=== PATIENT | female | born 1940 | race Caucasian/White ===

== ENCOUNTER → 2017-05-04 | Outpatient (CLI) | payer OTHER ==
[~2017-05-04] MED LIST: ASPEC81 PO; EZET10TA63 PO; FRS/40 PO; INSDGI SC; LISI10TA PO; MULT-506 PO; NSNN50; POTA-335 PO
== END | disposition home or self-care (01) ==
LOC: C.PAPS 14:05
PROVIDERS: ATTEND Obstetrics & Gynecology
DX: Z12.72 Encounter for screening for malignant neoplasm of vagina (principal); Z90.710 Acquired absence of both cervix and uterus; Z85.42 Personal history of malignant neoplasm of other parts of uterus

== ENCOUNTER 2018-09-05 13:04 | Inpatient (IN) ==
[2018-09-05 14:42] LABS: Basophils # (auto) 0.02 K/uL (0-0.2); Basophils % (auto) 0.3 %; Eosinophils % (auto) 1.5 %; Hematocrit (blood only) 42.2 % (37-47); Hemoglobin 13.1 g/dL (12.0-16.0); Immature Granulocytes # (auto) 0.01 K/uL (0.00-0.02); Immature Granulocytes % (auto) 0.1 %; Lymphocytes # (auto) 0.81 K/uL (1.2-3.4); Lymphocytes % (auto) 11.8 %; Mean Corpuscular Volume 85.8 fL (80-100); Mean Platelet Volume 11.7 fL (7.4-10.4); Monocytes # (auto) 0.59 K/uL (0.11-0.59); Monocytes % (auto) 8.6 %; Neutrophils # (auto) 5.35 K/uL (1.4-6.5); Neutrophils % (auto) 77.7 %; Platelet Count 122 K/uL (130-400); RDW Coefficient of Variation 15.4 % (11.5-14.5); RDW Standard Deviation 48.7 fL (36.4-46.3); Red Blood Count 4.92 M/uL (4.2-5.4); White Blood Count 6.88 K/uL (4.8-10.8)
--- NOTE | 2018-09-05 14:53 | XRay Report ---
SINGLE VIEW CHEST CLINICAL HISTORY: Dyspnea. FINDINGS: An AP, portable, upright chest radiograph is compared to study dated 04/21/2010. The examin ation is degraded by portable technique and patient rotation. The patient is status post midline melanie rnotomy. The heart is enlarged and there is atherosclerotic calcification of the thoracic ureter. The re is pulmonary vascular congestion with interstitial edema. Small pleural effusions are noted. There is bibasilar atelectasis. No pneumothorax is seen. The skeletal structures are osteopenic. There are healed right-sided rib fractures. Arthritic change is noted in the shoulders and spine. IMPRESSION: 1. Cardiomegaly with evidence of congestive failure and interstitial edema. 2. Small pleural effusions. Electronically signed by: Sunday Mueller M.D. 09/05/2018 2:51 PM
[2018-09-05 15:10] LABS: Albumin Level 4.1 gm/dl (3.4-5.0); BUN Creatinine Ratio 15.9 (10-20); Calcium 9.1 mg/dl (8.5-10.1); Creatinine Clr Calc Pharmacy 34.1 ml/min; Est GFR (Non-African American) 35.3; Potassium 3.7 mmol/L (3.5-5.1)
[2018-09-05 15:18] LABS: Albumin Globulin Ratio 1.2 (0.9-2); Bilirubin,Total 1.7 mg/dl (0.2-1); Globulin 3.4 gm/dl (2.5-4.0); Total Protein 7.5 gm/dl (6.4-8.2); Troponin I 0.074 ng/ml (0-0.045)
--- NOTE | 2018-09-05 16:25 | Ultrasound Report ---
US venous doppler LE BI HISTORY: Pain. Edema. le edema COMPARISON STUDY: None. FINDINGS: There is normal compressibility, flow, and augmentation within the bilateral lower extremit y deep venous systems. IMPRESSION: No DVT within the right or left lower extremity. The above report was generated using voice recognition software. It may contain grammatical, syntax or spelling errors. Electronically signed by: Joe Romero M.D. 09/05/2018 4:24 PM
--- OUTSIDE RECORDS SUMMARY | 2018-09-05 16:47 | External Medical Summary | Continuity of Care Document ---
:1940 Author Name Jason Benito, Provider Address Unavailable Unavailable , Care Team Providers Name Role Phone Lalo Benito, Garland Henao Unavailable [email or web address]. [facility] REY, Jose Unavailable Unavailable Unavailable Unavailable Unavailable Problems S/P aortic valve replacement with bioprosthetic valve (V42.2 ) (Z95.3) S/P mitral valve replacement with bioprosthetic valve (V42.2 ) (Z95.3) Well female exam with routine gynecological exam (V72.31) (Z 01.419) Chronic renal insufficiency (585.9) (N18.9) Critical Illness Myopathy (359.81) Morbid obesity (278.01) (E66.01) Osteoporosis (733.00) (M81.0) Hyperlipidemia (272.4) (E78.5) Hypertension (401.9) (I10) Paroxysmal atrial fibrillation (427.31) (I48.0) Type 2 diabetes mellitus (250.00) (E11.9) Renal failure (586) (N19) Allergies and Adverse Reactions No Known Drug Allergies (Allergy) Medications NitroTab 0.4 MG SUBL; DISSOLVE 1 TABLET UNDER THE TONGUE NEEDED FOR CHEST PAIN. Refills: 0 Aspirin 81 MG TABS; TAKE 1 TABLET DAILY. Refills: 0 Lasix 40 MG Oral Tablet; TAKE 1 TABLET DAILY. Refills: 0 Calcium 600+D3 TABS; take 1 tab daily Refills: 0 Alendronate Sodium 70 MG Oral Tablet; TAKE 1 TABLET ONCE WEE KLY. Quantity: 12 Refills: 3 Claritin-D 24 Hour TB24; TAKE 1 TABLET DAILY NEEDED. Refills: 0 Protonix 40 MG Oral Tablet Delayed Release; TAKE 1 TABLET DA BRIELLE. Refills: 0 Potassium Chloride 20 MEQ TBCR; TAKE 1 TABLET DAILY. Refills: 0 Lantus 100 UNIT/ML Subcutaneous Solution; INJECT 50 UNITS I N THE EVENING Refills: 0 Multi-Vitamin Oral Tablet; TAKE 1 TABLET DAILY. Refills: 0 Calcium + D TABS Refills: 0 Lisinopril 20 MG Oral Tablet Refills: 0 Procedures History of Hysterectomy Status: Complete d Immunizations Immunizations not documented Family History Mother No pertinent family history (V49.89) (Z78.9) Status: Active Social History - Smoking Status Unknown if ever smoked Never smoker Plan of Treatment Planned Encounters Appointment; Garland May M.D. Start: 19-Dec-2018 9:45 Request Planned Observations Planned Goals not documented Results No Known Results Results not documented Encounters Appointment; Garland May M.D. 13-Dec-2017 14:15 Encounter Diagnosis: Problem not documented Appointment; Beverly Valencia M.D. 04-May-2017 10:00 Encounter Diagnosis: Problem not documented Appointment; Garland May M.D. 28-Dec-2016 14:15 Encounter Diagnosis: Problem not documented Appointment; Garland May M.D. 19-Dec-2018 9:45 Encounter Diagnosis: Problem not documented
[2018-09-05] MEDS ORDERED: FUROSEMIDE 40 MG in SYRINGE 0 ML IV ONE (16:56)
[2018-09-05] MEDS ORDERED: NITROGLYCERIN 2% OINTMENT 30GM TUBE EXT STA (16:58)
[2018-09-05] MEDS ORDERED: FUROSEMIDE 40 MG/4 ML VIAL IV ONE (17:18)
[2018-09-05 17:25] LABS: Appearance Urine Clear (Clear); Bilirubin Urine Negative (Negative); Blood Urine Negative (Negative); Color Urine Yellow; Glucose Urine UA Negative (Negative); Ketones Urine Negative (Negative); Leukocyte Esterase Urine Negative (Negative); Nitrite Urine Negative (Negative); Protein Urine Negative (Negative); Specific Gravity Urine 1.011 (1.000-1.030); Urobilinogen Urine Negative (Negative)
--- NOTE | 2018-09-05 18:32 | History & Physical Report ---
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 In ED patient was noted to have elevated BNP and 12,689, elevated troponin 0.074, BUN 22, creatinine 1.41, glucose 241. Chest x-ray consistent with congestive changes with interstitial edema and small bilateral pleural effusions. EKG revealed sinus tachycardia with ST depression and T wave inversions inferior and laterally. She was given Lasix 40 mg IV x1 along with 0.5 inch Nitropaste. Admit to PCU consult cardiology - spoke to [facility] Dr. Wesley Received Lasix 40mg x1 IN ED Will order 40mg Lasix IV in a.m., monitor response and adjust dose accordingly echocardiogram (last echo 2015 revealed normal EF, Grade 1 DD) Daily standing weights Strict I and O Heart healthy/low sodium diet trend troponin (2) Elevated troponin: likely secondary to demand ischemia given CHF and sinus tachycardia trend troponin Q6h discussed with cardiology, heparin not recommended (3) CAD (coronary artery disease): currently on ASA, Statin, LIGIA not on BB No chest pain troponin elevated, likely demand ischemia will trend troponin, ecg and diurese (4) History of aortic valve replacement with bioprosthetic valve: (5) History of mitral valve replacement with bioprosthetic valve: (6) PAF (paroxysmal atrial fibrillation): rate and rhythm controlled not on oral anticoagulation (pt didn't tolerate wafarin per cardiology notes) continue asa (7) T2DM (type 2 diabetes mellitus): Last A1C 8.5 on 07/26/18 On Lantus [address] on Lantus/Novolog per protocol on Lisinopril for renal protection (8) CKD (chronic kidney disease) stage 3, GFR 30-59 ml/min: Bun/Cr 22/1.41 baseline Cr 1.2-1.3 monitor bmp with diuretic use (9) Thrombocytopenia: Plt ct stable at 122 monitor while on SQ heparin (10) DVT prophylaxis: heparin SQ, SCDS, TEDS per Dr. May reports pt has hx of DVT/PE monitor plt level Disposition: discharge to home when able Follow up: PCP Dr. South upon discharge along with appropriate follow up with [facility] Cardiology Patient was seen and examined in collaboration with Dr. Hodgson, please see addendum Starting 09/06/18 patient will be under the care of Dr. Solis History of Present Illness Chief Complaint: Increased lower extremity swelling x 1 week. 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 Pt notes she was last evaluated by PCP Dr. Sotuh 1 month ago. At the time patient had been doing well. 2 days after appointment she noticed intermittent lower ext swelling, worse at night and resolved in a.m. Over the past week sx have worsened and edema has been increasing and more persistent. She also notes THORNTON. Daughter at bedside elicits THORNTON likely past 2 weeks, but per patient it just started today. She is unsure of any weight gain as she doesn't weigh her self on a regular basis. She denies any recent illness, f/c/s, dizziness, lightheaded, chest pain, palpitations, sob at rest, n/v/d, abdominal pain, change in bowel or urinary habits. "I wouldn't be here if it wasn't for my swelling I feel fine." In ED patient was noted to have elevated BNP and 12,689, elevated troponin 0.074, BUN 22, creatinine 1.41, glucose 241. Chest x-ray consistent with congestive changes with interstitial edema and small bilateral pleural effusions. EKG revealed sinus tachycardia with ST depression and T wave inversions inferior and laterally. She was given Lasix 40 mg IV x1 along with 0.5 inch Nitropaste. Allergies Allergy/AdvReac Type Severity Reaction Status Date / Time No Known Allergies Allergy Unknown Verified 09/05/18 14:30 Home Medications Home Medications Medication Instructions Recorded Confirmed Type alendronate 70 mg PO WK 09/05/18 09/05/18 History amlodipine 2.5 mg PO DAILY 09/05/18 09/05/18 History aspirin [Aspir-81] 81 mg PO DAILY 09/05/18 09/05/18 History atorvastatin 20 mg PO HS 09/05/18 09/05/18 History furosemide 40 mg PO DAILY 09/05/18 09/05/18 History insulin glargine [Lantus U-100 50 units SUBCUT BID 09/05/18 09/05/18 History Insulin] lisinopril 20 mg PO DAILY 09/05/18 09/05/18 History potassium chloride [Klor-Con M20] 20 meq PO DAILY 09/05/18 09/05/18 History Past Med/Surg History Medical History History of DVT (deep vein thrombosis) (Chronic) History of pulmonary embolism (Chronic) T2DM (type 2 diabetes mellitus) (Chronic) PAF (paroxysmal atrial fibrillation) (Chronic) Thrombocytopenia (Chronic) CKD (chronic kidney disease) stage 3, GFR 30-59 ml/min (Chronic) CAD (coronary artery disease) (Chronic) HLD (hyperlipidemia) (Chronic) Osteoporosis (Chronic) History of uterine cancer (Chronic) No pertinent past medical history (Resolved) Family history non-contributory Surgical History History of aortic valve replacement with bioprosthetic valve (Chronic) History of mitral valve replacement with bioprosthetic valve (Chronic) No pertinent past surgical history (Resolved) Social History Preferred Language: Chinese Communication Ability: Effective Audio Production 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 Physical Exam Physical Exam: Gen: WD/WN, Elderly, F, Morbidly obese, NAD, sitting up in bed, pleasant and laughing, conversing easily Head: Normocephalic, Atraumatic Eyes: Sclera normal, no conjunctival injection, PERRLA, EOMI ENT: Gross hearing intact, normal pharynx, mucous membranes moist Neck: supple, no adenopathy, No JVD, no bruit, Resp: Clear to auscultation b/l, no wheeze, rales, rhonchi. 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 Extremities: B/L +3 pretibial edema, +venous stasis changes, no erythema, warmth, negative homans sign Skin: warm, moist, no rash, negative turgor, cap refill < 2sec Neuro: Alert and oriented x 3, speech normal, good mood/affect, cran nerve 2-12 intact grossly : deferred Results & Data Vital Signs (Past 12 Hours) Vital Signs Temp Pulse Pulse Resp BP BP Pulse Ox 09/05/18 18:07 89 20 140/85 97 09/05/18 16:22 100 H 22 150/79 H 99 09/05/18 13:25 36.3 C L 106 H 18 99 Laboratory Results Short CBC 09/05/18 Range/Units 14:23 WBC 6.88 (4.8-10.8) K/uL Hgb 13.1 (12.0-16.0) g/dL Hct 42.2 (37-47) % Plt Count 122 L (130-400) K/uL BMP 09/05/18 14:23 Sodium 137 Potassium 3.7 Chloride 102 Carbon Dioxide 29 BUN 22 H Creatinine 1.41 H Glucose 241 H Calcium 9.1 Cardiac Enzymes 09/05/18 Range/Units 14:23 Troponin I 0.074 H* (0-0.045) ng/ml Liver Function 09/05/18 Range/Units 14:23 Total Bilirubin 1.7 H (0.2-1) mg/dl AST 24 (15-37) U/L ALT 26 (12-78) U/L Alkaline Phosphatase 123 H (45-117) U/L Albumin 4.1 (3.4-5.0) gm/dl Urine 09/05/18 Range/Units 17:12 Urine Color Yellow Urine Appearance Clear (Clear) Urine pH 6.0 (4.5-7.5) Ur Specific [place] 1.011 (1.000-1.030) Urine Protein Negative (Negative) Urine Glucose (UA) Negative (Negative) Diagnostic Findings Venous Doppler: IMPRESSION: No DVT within the right or left lower extremity. CXR: IMPRESSION: 1. Cardiomegaly with evidence of congestive failure and interstitial edema. 2. Small pleural effusions. Medications Administered Discontinued Medications Furosemide (Lasix) Confirm Administered Dose 40 mg IV .STK-MED ONE Stop: 09/05/18 17:19 Last Admin: 09/05/18 17:23 Dose: Not Given Documented by: [id number] Furosemide 40 mg/ Syringe 4 mls @ 4 mls/min IV ONE ONE Stop: 09/05/18 16:57 Last Admin: 09/05/18 17:24 Dose: 4 mls/min Documented by: [id number] Nitroglycerin (Nitro-Bid 2%) 0.5 inch EXT NOW STA Stop: 09/05/18 16:59 Last Admin: 09/05/18 17:24 Dose: 0.5 inch Documented by: [id number] ECG Rate (beats per minute): 115 Rhythm: sinus tachycardia Findings: + ST depression and + T-wave inversion Change: the following changes noted Additional Comments: Inferior lateral ST wave depressions/Twave inversions noted Code Status & VTE Plan Code Status Full Code VTE Prophylaxis Plan VTE Prophylaxis will be ordered: Yes Supervising Physician Co-Signing Physician Notes I have seen and examined the patient and have discussed the case with the provider above. I agree with the assessment and plan as stated with the following exceptions. Ms. Lao presents with acute heart failure syndrome and has responded well to 40mg of Lasix IV. She diuresed approx 900cc (declined Chow[place]ury so estimated), she has no more tachypnea or conversational dyspnea which were noted in the ER. She personally reports being able to breathe easier. She also received 0.5 inch nitro paste. She denies any chest pain, and reports THORNTON progressing to dyspnea at rest over the past two weeks. She had some dietary indiscretions with salt, which may be contributing. She also has a bump in troponin >50% in 6 hours and with TRS 5, heparin and ASA 324mg was added in the event of silent ACS. Diabetes is uncontrolled. Physical exam reveals 118/73, P 98, AF, resp 18 and non-labored, 92% on room air. She is bright and energetic. S1/2 hears without S3. No overt murmur heard. Lungs were clear to auscultation. Abdomen was protuberant but soft, nontender and nondistended. There is 3+ pitting edema in her legs bilaterally with no evidence of cellulitis. She denies any recent infections. She has a h/o aortic and mitral bioprosthetic valves. She is followed by Dr. May. Agree with Lasix in am and adjusting dose based on output and clinical response. As there is a good response to diuretics and she denies chest pain with improved work of breathing, no further nitro will be given at this time. EKG revealed sinus tachycardia in the low 100s with TWI in I, AVL, V5 and V6. Cont to trend trops and repeat EKG in am or if new symptoms result overnight. DO Gokul (1) CHF (congestive heart failure) Heart failure chronicity: unspecified Heart failure type: unspecified Qualified Code(s): I50.9 - Heart failure, unspecified
[2018-09-05] MEDS ORDERED: ONDANSETRON INJ 2 MG/ML 2 ML VIAL IV PRN (19:02)
[2018-09-05] MEDS ORDERED: NITROGLYCERIN SL 0.4 MG/TAB TAB SL PRN (19:02)
[2018-09-05] MEDS ORDERED: POLYETHYLENE (MIRALAX) 17 GM PACK PO PRN (19:02)
[2018-09-05] MEDS ORDERED: MAGNESIUM HYDROXIDE SUSP 30 ML UDC PO PRN (19:02)
[2018-09-05] MEDS ORDERED: GLUCOSE 10 TABS/TUBE PO PRN (19:02)
[2018-09-05] MEDS ORDERED: GLUCOSE 40% GEL 15 GM TUBE PO PRN (19:02)
[2018-09-05] MEDS ORDERED: GLUCAGON FOR INJ 1 MG VIAL SQ PRN (19:02)
[2018-09-05] MEDS ORDERED: ALUMINUM/MAGNESIUM SUSP 30 ML UDC PO PRN (19:02)
[2018-09-05] MEDS ORDERED: ACETAMINOPHEN 325 MG TAB PO PRN (19:02)
[2018-09-05] MEDS ORDERED: DEXTROSE 50% 50 ML SYRINGE IV PRN (19:02)
[2018-09-05] MEDS ORDERED: CARBOHYDRATES FOR HYPOGLYCEMIA PO PRN (19:02)
[2018-09-05 20:29] LABS: INR 1.2 (0.9-1.1); Partial Thromboplastin Time 27.8 Seconds (21.0-31.0); Prothrombin Time 12.4 Seconds (9.0-12.0)
[2018-09-05] MEDS ORDERED: ASPIRIN 81 MG ECTAB PO SCH (21:00)
[2018-09-05] MEDS ORDERED: ATORVASTATIN 20 MG TAB PO SCH (21:00)
[2018-09-05] MEDS ORDERED: ASPIRIN 81 MG CHEW PO STA (21:03)
[2018-09-05] MEDS: INSULIN ASPART 100 UNITS/ML 3 ML PEN SC SCH (21:07)
[2018-09-05] MEDS: Heparin IV Standard *NO* Bolus IV SCH ×2 (21:38→22:33)
[2018-09-05] MEDS: Heparin Adult STANDARD Wt-Based Dextrose 5% 25,000 units/500 mL IV SCH (21:42)
[2018-09-05] MEDS ORDERED: HEPARIN SOD 5,000 UNIT/0.5 ML VIAL SQ SCH (22:00)
[2018-09-06 04:20] LABS: Hematocrit (blood only) 39.6 % (37-47); Hemoglobin 12.9 g/dL (12.0-16.0); Mean Corpuscular Hgb Conc 32.6 g/dL (32-36); Mean Corpuscular Volume 84.4 fL (80-100); Mean Platelet Volume 11.5 fL (7.4-10.4); Platelet Count 116 K/uL (130-400); RDW Coefficient of Variation 15.4 % (11.5-14.5); RDW Standard Deviation 47.1 fL (36.4-46.3); Red Blood Count 4.69 M/uL (4.2-5.4); White Blood Count 7.28 K/uL (4.8-10.8)
[2018-09-06 04:41] LABS: Albumin Level 3.7 gm/dl (3.4-5.0); BUN Creatinine Ratio 15.1 (10-20); Bilirubin Direct 0.5 mg/dl (0-0.2); Calcium 8.9 mg/dl (8.5-10.1); Creatinine Clr Calc Pharmacy 32.4 ml/min; Est GFR (African American) 39.3; Est GFR (Non-African American) 33.9; Potassium 3.7 mmol/L (3.5-5.1)
[2018-09-06 04:47] LABS: Total Protein 7.1 gm/dl (6.4-8.2); Troponin I 15.6 ng/ml (0-0.045)
[2018-09-06 05:08] LABS: Partial Thromboplastin Ratio 2.9
[2018-09-06 05:18] LABS: Partial Thromboplastin Time 78.4 Seconds (21.0-31.0)
[2018-09-06 06:13] LABS: Estimated Average Glucose 192 mg/dl; Hemoglobin A1C 8.3 % (4.5-5.6)
[2018-09-06] MEDS ORDERED: PERFLUTREN LIPID MICROSPHERE (DEFINITY) IV ONE (07:07)
[2018-09-06] MEDS: INSULIN ASPART 100 UNITS/ML 3 ML PEN SC SCH ×4 (07:51→20:30)
[2018-09-06] MEDS ORDERED: FUROSEMIDE 40 MG in SYRINGE 0 ML IV SCH ×2 (09:00→20:00)
[2018-09-06] MEDS ORDERED: LISINOPRIL 20 MG TAB PO SCH (09:00)
[2018-09-06] MEDS ORDERED: POTASSIUM CHLORIDE 20 MEQ TABCR PO SCH (09:00)
[2018-09-06] MEDS ORDERED: ASPIRIN 81 MG ECTAB PO SCH (09:00)
[2018-09-06] MEDS ORDERED: AMLODIPINE BESYLATE 5 MG TAB PO SCH (09:00)
[2018-09-06] MEDS ORDERED: INSULIN GLARGINE SOLOSTAR 100 UNITS/ML 3 ML PEN SC SCH (09:00)
--- NOTE | 2018-09-06 10:09 | Cardiology Consultation ---
Date of Consultation September 06, 2018 Assessment & Plan (1) NSTEMI (non-ST elevated myocardial infarction): 2. Acute CHF 3. 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 Cardiomyopathy 5. Type 2 DM 6. Dyslipidemia 7. History of paroxysmal afib 8. CKD Patient was admitted with progressive dyspnea, orthopnea and lower extremity edema. She has been chest pain free but troponin has trended up to 15 and echo demonstrates new LV dysfunction and wall motion abnormalities concerning for ischemic heart disease. Recommend cardiac catheterization for further evaluation. The procedure, risks, benefits and alternative were discussed with the patient and she wishes to proceed. Will be performed by Dr. Gresham later today. Continue aspirin. Stop amlodipine. Start metoprolol. Recommend high intensity statin. She is being diuresed with IV Lasix with improvement in her symptoms. She still has evidence of vascular congestion on exam. Continue IV Lasix. Monitor renal function and electrolytes closely. Strict I&OS. Daily weights. Low sodium diet. Supervising Physician Co-Signing Physician Notes Patient seen and examined. Agree with assessment and plan as outlined by physician construction management assistant Tierra Hinkle. Patient here with new acute heart failure. Today patient is well perfused, respiratory status improved with only mild residual congestion on exam after IV diuretics overnight. Trop 15. Echo shows new severe LV dysfunction with anterior akinesis and some degeneration of bioprosthetic aortic valve. Decision to proceed with cardiac catheterization where found to have severe, complex multivessel disease. Discussed findings with patient and daughter. Recommend evaluation for CABG vs high risk PCI at tertiary center. Discussed case with Dr. Dhillon of [facility] cardiology who agreed to accept patient in transfer. Follow-up with Dr. May post hospitalization. History of Present Illness Attending Physician: Michel Solis DO History of Present Illness Ms. 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 She is followed in our office by Dr. May. Cardiac history dates back to December 2009 when she was admitted with right lower extremity cellulitis. She was diagnosed with group B streptococcal bacteremia and subacute bacterial endocarditis. This resulted in severe mitral and aortic regurgitation and she was transferred to [facility] where she underwent aortic valve replacement with a pericardial aortic valve and porcine mitral valve replacement. Her postoperative course was complicated by bleeding/cardiac tamponade requiring re-exploration, paroxysmal atrial fibrillation, and critical illness myopathy. Additionally, there was question of left main stenosis on her cardiac catheterization but apparently it was felt to be a vegetation occluding the left main ostium. She was later taken off her anticoagulation due to GI bleed causing hospitalization. She has had progressive exertional dyspnea and lower extremity edema over the past week. Yesterday her symptoms were significantly worse. She also experienced orthopnea over the past several nights. She continued on her usual Lasix 40 mg daily. She did not have any chest discomfort. Upon admission her BNP was elevated at >12,000 and chest xray showed pulmonary edema. She is negative 1.2 L. She notes improvement in her shortness of breath today. She remains chest pain free. No palpitations, lightheadedness, near syncope or syncope. No abnormal bleeding. ROS: 10 point ROS reviewed and otherwise negative unless stated in HPI. Social Hx: . Lives with daughter. No tobacco, alcohol or drug use. Allergies Allergy/AdvReac Type Severity Reaction Status Date / Time No Known Allergies Allergy Unknown Verified 09/05/18 14:30 Home Medications Home Medications Medication Instructions Recorded Confirmed Type alendronate 70 mg PO WK 09/05/18 09/05/18 History amlodipine 2.5 mg PO DAILY 09/05/18 09/05/18 History aspirin [Aspir-81] 81 mg PO DAILY 09/05/18 09/05/18 History atorvastatin 20 mg PO HS 09/05/18 09/05/18 History furosemide 40 mg PO DAILY 09/05/18 09/05/18 History insulin glargine [Lantus U-100 50 units SUBCUT BID 09/05/18 09/05/18 History Insulin] lisinopril 20 mg PO DAILY 09/05/18 09/05/18 History potassium chloride [Klor-Con M20] 20 meq PO DAILY 09/05/18 09/05/18 History atorvastatin 40 mg PO HS #30 tab 09/06/18 Rx lisinopril 20 mg PO DAILY #30 tab 09/06/18 Rx metoprolol tartrate 25 mg PO BID #60 tab 09/06/18 Rx nitroglycerin [Nitrostat] 0.4 mg SUBLINGUAL UD PRN #30 tab 09/06/18 Rx Patient History Medical History History of DVT (deep vein thrombosis) (Chronic) History of pulmonary embolism (Chronic) T2DM (type 2 diabetes mellitus) (Chronic) PAF (paroxysmal atrial fibrillation) (Chronic) Thrombocytopenia (Chronic) CKD (chronic kidney disease) stage 3, GFR 30-59 ml/min (Chronic) CAD (coronary artery disease) (Chronic) HLD (hyperlipidemia) (Chronic) Osteoporosis (Chronic) History of uterine cancer (Chronic) No pertinent past medical history (Resolved) Family history non-contributory Surgical History History of aortic valve replacement with bioprosthetic valve (Chronic) History of mitral valve replacement with bioprosthetic valve (Chronic) No pertinent past surgical history (Resolved) Social History Preferred Language: American Communication Ability: 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 HEENT: Head is normal. PERRLA. EOMI. Sclerae anicteric. Ears, nose and throat unremarkable. Mucous membranes moist. Neck: Normal carotid upstrokes, no bruits. No appreciable JVD. Lungs: Clear to auscultation bilaterally without rales, rhonchi or wheezes. Cardiac: Regular rate and rhythm. [place] valve sounds. Grade 3/6 systolic murmur. Abdomen: Soft and nontender. Bowel sounds normal. No mass or organomegaly. No abdominal bruit. Extremities/vascular: Well perfused. 1+ pretibial edema bilaterally Erythematous rash right pisano. No ulcerations. Radial, DP and PT pulses 2+ bilaterally Neurologic: Nonfocal Psychiatric: Affect appropriate. Alert and oriented. Results & Data Vital Signs (Past 12 Hours) Vital Signs Temp Pulse Resp BP Pulse Ox 09/06/18 07:13 37.1 C 89 18 124/73 90 09/06/18 04:08 36.7 C 76 18 125/70 93 09/05/18 23:23 36.7 C 92 H 19 148/77 H 96 Laboratory Results Laboratory Results - last 24 hr 09/05/18 09/05/18 09/05/18 14:23 14:23 17:12 WBC 6.88 RBC 4.92 Hgb 13.1 Hct 42.2 MCV 85.8 MCH 26.6 MCHC 31.0 L RDW Std Deviation 48.7 H RDW Coeff of Na 15.4 H Plt Count 122 L MPV 11.7 H Immature Gran % (Auto) 0.1 Neut % (Auto) 77.7 Lymph % (Auto) 11.8 [place] % (Auto) 8.6 Eos % (Auto) 1.5 Baso % (Auto) 0.3 Immature Gran # (Auto) 0.01 Neut # (Auto) 5.35 Lymph # (Auto) 0.81 L [place] # (Auto) 0.59 Eos # (Auto) 0.10 Baso # (Auto) 0.02 PT INR APTT PTT Ratio Sodium 137 Potassium 3.7 Chloride 102 Carbon Dioxide 29 Anion Gap 6.0 BUN 22 H Creatinine 1.41 H Est Cr Clr Drug Dosing 34.1 Est GFR ( Amer) 41.0 Est GFR (Non-Af Amer) 35.3 BUN/Creatinine Ratio 15.9 Glucose 241 H POC Glucose Estimat Average Glucose Hemoglobin A1c Calcium 9.1 Magnesium 2.0 Total Bilirubin 1.7 H Direct Bilirubin AST 24 ALT 26 Alkaline Phosphatase 123 H Troponin I 0.074 H* NT-Pro-B Natriuret Pep 34869 H Total Protein 7.5 Albumin 4.1 Globulin 3.4 Albumin/Globulin Ratio 1.2 Triglycerides Cholesterol LDL Cholesterol, Calc VLDL Cholesterol, Calc HDL Cholesterol Cholesterol/HDL Ratio Lipase 276 Urine Color Yellow Urine Appearance Clear Urine pH 6.0 Ur Specific [place] 1.011 Urine Protein Negative Urine Glucose (UA) Negative Urine Ketones Negative Urine Blood Negative Urine Nitrite Negative Urine Bilirubin Negative Urine Urobilinogen Negative Ur Leukocyte Esterase Negative 09/05/18 09/05/18 09/05/18 19:50 19:50 21:01 WBC RBC Hgb Hct MCV MCH MCHC RDW Std Deviation RDW Coeff of Na Plt Count MPV Immature Gran % (Auto) Neut % (Auto) Lymph % (Auto) [place] % (Auto) Eos % (Auto) Baso % (Auto) Immature Gran # (Auto) Neut # (Auto) Lymph # (Auto) [place] # (Auto) Eos # (Auto) Baso # (Auto) PT 12.4 H INR 1.2 H APTT 27.8 PTT Ratio 1.0 Sodium Potassium Chloride Carbon Dioxide Anion Gap BUN Creatinine Est Cr Clr Drug Dosing Est GFR ( Amer) Est GFR (Non-Af Amer) BUN/Creatinine Ratio Glucose POC Glucose 159 H Estimat Average Glucose Hemoglobin A1c Calcium Magnesium Total Bilirubin Direct Bilirubin AST ALT Alkaline Phosphatase Troponin I 2.260 H* NT-Pro-B Natriuret Pep Total Protein Albumin Globulin Albumin/Globulin Ratio Triglycerides Cholesterol LDL Cholesterol, Calc VLDL Cholesterol, Calc HDL Cholesterol Cholesterol/HDL Ratio Lipase Urine Color Urine Appearance Urine pH Ur Specific [place] Urine Protein Urine Glucose (UA) Urine Ketones Urine Blood Urine Nitrite Urine Bilirubin Urine Urobilinogen Ur Leukocyte Esterase 09/06/18 09/06/18 09/06/18 03:52 03:52 03:52 WBC 7.28 RBC 4.69 Hgb 12.9 Hct 39.6 MCV 84.4 MCH 27.5 MCHC 32.6 RDW Std Deviation 47.1 H RDW Coeff of Na 15.4 H Plt Count 116 L MPV 11.5 H Immature Gran % (Auto) Neut % (Auto) Lymph % (Auto) [place] % (Auto) Eos % (Auto) Baso % (Auto) Immature Gran # (Auto) Neut # (Auto) Lymph # (Auto) [place] # (Auto) Eos # (Auto) Baso # (Auto) PT INR APTT 78.4 H* PTT Ratio 2.9 Sodium 138 Potassium 3.7 Chloride 103 Carbon Dioxide 31 Anion Gap 4.0 BUN 22 H Creatinine 1.46 H Est Cr Clr Drug Dosing 32.4 Est GFR ( Amer) 39.3 Est GFR (Non-Af Amer) 33.9 BUN/Creatinine Ratio 15.1 Glucose 120 H POC Glucose Estimat Average Glucose Hemoglobin A1c Calcium 8.9 Magnesium 2.0 Total Bilirubin 2.0 H Direct Bilirubin 0.5 H AST 77 H ALT 28 Alkaline Phosphatase 99 Troponin I 15.600 H* NT-Pro-B Natriuret Pep Total Protein 7.1 Albumin 3.7 Globulin Albumin/Globulin Ratio Triglycerides 58 Cholesterol 121 LDL Cholesterol, Calc 59 VLDL Cholesterol, Calc 12 HDL Cholesterol 50 Cholesterol/HDL Ratio 2 Lipase Urine Color Urine Appearance Urine pH Ur Specific [place] Urine Protein Urine Glucose (UA) Urine Ketones Urine Blood Urine Nitrite Urine Bilirubin Urine Urobilinogen Ur Leukocyte Esterase 09/06/18 09/06/18 09/06/18 03:52 06:18 07:32 WBC RBC Hgb Hct MCV MCH MCHC RDW Std Deviation RDW Coeff of Na Plt Count MPV Immature Gran % (Auto) Neut % (Auto) Lymph % (Auto) [place] % (Auto) Eos % (Auto) Baso % (Auto) Immature Gran # (Auto) Neut # (Auto) Lymph # (Auto) [place] # (Auto) Eos # (Auto) Baso # (Auto) PT INR APTT PTT Ratio Sodium Potassium Chloride Carbon Dioxide Anion Gap BUN Creatinine Est Cr Clr Drug Dosing Est GFR ( Amer) Est GFR (Non-Af Amer) BUN/Creatinine Ratio Glucose POC Glucose 119 H 137 H Estimat Average Glucose 192 Hemoglobin A1c 8.3 H Calcium Magnesium Total Bilirubin Direct Bilirubin AST ALT Alkaline Phosphatase Troponin I NT-Pro-B Natriuret Pep Total Protein Albumin Globulin Albumin/Globulin Ratio Triglycerides Cholesterol LDL Cholesterol, Calc VLDL Cholesterol, Calc HDL Cholesterol Cholesterol/HDL Ratio Lipase Urine Color Urine Appearance Urine pH Ur Specific [place] Urine Protein Urine Glucose (UA) Urine Ketones Urine Blood Urine Nitrite Urine Bilirubin Urine Urobilinogen Ur Leukocyte Esterase Diagnostic Findings preliminary echo reviewed with Dr. 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
--- NOTE | 2018-09-06 11:31 | Hospitalist Progress Note ---
Date of Service September 06, 2018 Assessment & Plan (1) CHF (congestive heart failure): Dr. Wesley on case Received Lasix 40mg x1 IN ED 40mg Lasix IV q12., monitor response and adjust dose accordingly echocardiogram (last echo 2015 revealed normal EF, Grade 1 DD) Daily standing weights Strict I and O Heart healthy/low sodium diet trend troponin (2) Elevated troponin: likely secondary to demand ischemia given CHF and sinus tachycardia trend troponin Q6h Dr Guan discussed with cardiology, heparin not recommended (3) CAD (coronary artery disease): currently on ASA, Statin, LIGIA not on BB No chest pain troponin elevated, likely demand ischemia will trend troponin, ecg and diurese (4) History of aortic valve replacement with bioprosthetic valve: No action needed (5) History of mitral valve replacement with bioprosthetic valve: No Action needed (6) PAF (paroxysmal atrial fibrillation): rate and rhythm controlled not on oral anticoagulation (pt didn't tolerate wafarin per cardiology notes) continue asa (7) T2DM (type 2 diabetes mellitus): Last A1C 8.5 on 07/26/18 On Lantus [address] on Lantus/Novolog per protocol on Lisinopril for renal protection (8) CKD (chronic kidney disease) stage 3, GFR 30-59 ml/min: monitor bmp with diuretic use (9) Thrombocytopenia: Plt ct stable at 122, on SC Heparin (10) DVT prophylaxis: heparin SQ, SCDS, TEDS per Dr. May reports pt has hx of DVT/PE monitor plt level Disposition: discharge to home when able Follow up: PCP Dr. South upon discharge along with appropriate follow up with [facility] Subjective This is a 78-year-old female who has a significant past medical history of CAD, history of bioprosthetic mitral and aortic valve replacement in 2009, history of subacute bacterial endocarditis secondary to cellulitis, PAF, T2DM, CKD stage III, HLD, thrombocytopenia, osteoporosis, history of uterine cancer who presents to [facility] secondary to increased lower ext swelling x 1 week. In ED patient was noted to have elevated BNP and 12,689, elevated troponin 0.074, BUN 22, creatinine 1.41, glucose 241. Chest x-ray consistent with congestive changes with interstitial edema and small bilateral pleural effusions. EKG revealed sinus tachycardia with ST depression and T wave inversions inferior and laterally. She was given Lasix 40 mg IV x1 along with 0.5 inch Nitropaste. Feeling a little better each day, ambulating c assist from bathroom ROS-No Headache, No Visual Changes, No Nausea, No Vomiting, No Fever, No Chills, No Neck Pain or Stiffness, No Chest Pain, No Palpitations, No SOB, No THORNTON, No Cough, No Sputum, No Wheezing, No Abdominal Pain, No Diarrhea, No Hematemesis, No Hemoptysis, No Unexpected Weight Loss, No Flank pain, No Melena, No Hematochezia, No Frequency, No Urgency, No Burning, No Hematuria, No Rashes, No Diaphoresis. Appetite is Normal, c/o LE edema Physical Exam Gen-AAO x 3, NAD, Afebrile, Pleasant, Obese Head-NCAT, EOMI, PERRLA, Anicteric Sclera, No Posterior Pharyngeal Erythema Neck-Supple, No JVD, No Thyromegaly, No Masses, No LAD, No Bruits Lungs-Clear to Auscultation Bilaterally, No Rales, No Rhonchi, No Wheezing, No Crepitus Chest-No S4, +S1, +S2, No S3, No Murmurs, No Rubs, No Gallops, No Ectopy Abdomen-Soft, Bowel Sounds Present, Non Tender, Non Distended, No Hepatomegaly, No Splenomegaly, No Palpable Masses, No Rebound, No Rigidity, No Guarding Musculoskeletal-Full Range of Motion Bilaterally, No CVAT Extremities-No Cyanosis, No Clubbing, 2-3+ Pitting Edema Nuero-Cranial Nerves II-XII grossly intact, Motor WNL, DTRs WNL, Strength WNL, Non Focal Psych-Normal Mood Results & Data Vital Signs (Past 12 Hours) Vital Signs Temp Pulse Resp BP Pulse Ox 09/06/18 07:13 37.1 C 89 18 124/73 90 09/06/18 04:08 36.7 C 76 18 125/70 93 Current Diagnoses Thrombocytopenia, unspecified (09/05/18) Type 2 diabetes mellitus without complications (09/05/18) Non-ST elevation (NSTEMI) myocardial infarction (09/05/18) Atherosclerotic heart disease of [place] coronary artery without angina pectoris (09/05/18) Paroxysmal atrial fibrillation (09/05/18) Heart failure, unspecified (09/05/18) Chronic kidney disease, stage 3 (moderate) (09/05/18) Abnormal levels of other serum enzymes (09/05/18) Presence of xenogenic heart valve (09/05/18) Allergies No Known Allergies Allergy (Unknown, Verified 09/05/18 14:30) Height/Weight/Isolation Height 5 ft 1 in Weight 91.5 kg Chemistry 09/05/18 09/06/18 14:23 03:52 Sodium 137 138 Potassium 3.7 3.7 Chloride 102 103 Carbon Dioxide 29 31 Anion Gap 6.0 4.0 BUN 22 H 22 H Creatinine 1.41 H 1.46 H Glucose 241 H 120 H Urinalysis 09/05/18 17:12 Urine Color Yellow Urine Appearance Clear Urine pH 6.0 Ur Specific [place] 1.011 Urine Protein Negative Urine Glucose (UA) Negative Urine Ketones Negative Urine Blood Negative Urine Nitrite Negative Urine Bilirubin Negative (1) CHF (congestive heart failure) Heart failure chronicity: unspecified Heart failure type: unspecified Qualified Code(s): I50.9 - Heart failure, unspecified
[2018-09-06 11:36] LABS: Partial Thromboplastin Ratio 2.3
[2018-09-06] MEDS: METOPROLOL TARTRATE 25 MG TAB PO SCH ×2 (13:48→20:29)
[2018-09-06] MEDS ORDERED: MIDAZOLAM HCL 1 MG/ML 2ML VIAL ONE (14:21)
[2018-09-06] MEDS ORDERED: NiCARDipine HCL INJ 2.5 MG/ML 10 ML AMP ONE (14:21)
[2018-09-06] MEDS ORDERED: fentaNYL citrate 100 MCG/2 ML VIAL ONE (14:21)
[2018-09-06] MEDS ORDERED: HEPARIN (PORCINE) 1000 UNIT/ML 10 ML (CATH LAB USE ONLY) ONE (14:21)
[2018-09-06] MEDS ORDERED: NITROGLYCERIN/D5W 100MCG/ML 20ML SYR ONE (14:22)
--- NOTE | 2018-09-06 15:49 | Pre Anesthesia Assessment ---
Date of Service September 06, 2018 Pre Sedation Assessment Vital Signs Temp Pulse Pulse Resp BP BP Pulse Ox 09/06/18 11:30 36.7 C 85 18 124/68 93 09/06/18 07:30 80 09/06/18 07:13 37.1 C 89 18 124/73 90 09/06/18 04:08 36.7 C 76 18 125/70 93 09/05/18 23:23 36.7 C 92 H 19 148/77 H 96 09/05/18 20:08 98 H 09/05/18 20:00 36.6 C 98 H 18 118/73 92 09/05/18 19:52 37.0 C 106 H 22 163/82 H 94 09/05/18 18:07 89 20 140/85 97 09/05/18 16:22 100 H 22 150/79 H 99 Cardiovascular RRR, no murmur, no edema Respiratory normal respiratory effort, lungs clear to auscultation Pre-Sedation Airway Assessment Smoking Status: Never smoker Hx Sleep Apnea: No Hx Difficult Intubation: No Short, Thick Neck: No Thyromental Distance: > or= 3.5 Finger Breadths Oral Cavity: + WNL Mallampati Class: III Procedure Planning Contraindications for Sedation: none Current Medications Reviewed: Yes Notes The planned sedation has been discussed with the patient. Informed Consent was obtained. I have identified the patient, determined the appropriateness of sedation and have assessed the patient immediately prior to the procedure. All medicine(s) and interventions are by my order.
--- NOTE | 2018-09-06 15:51 | Post Anesthesia Assessment ---
Date of Service September 06, 2018 Post Sedation Assessment Vital Signs Temp Pulse Pulse Resp BP BP Pulse Ox 09/06/18 11:30 36.7 C 85 18 124/68 93 09/06/18 07:30 80 09/06/18 07:13 37.1 C 89 18 124/73 90 09/06/18 04:08 36.7 C 76 18 125/70 93 09/05/18 23:23 36.7 C 92 H 19 148/77 H 96 09/05/18 20:08 98 H 09/05/18 20:00 36.6 C 98 H 18 118/73 92 09/05/18 19:52 37.0 C 106 H 22 163/82 H 94 09/05/18 18:07 89 20 140/85 97 09/05/18 16:22 100 H 22 150/79 H 99 Recovery Score Activity: Moves 4 extremities Respiration: Deep Breath/Cough Circulation: +/-20% PreAnes Value Consciousness: Fully Awake Oxygen Saturation: O2 needed for >90% Post Sedation Plan On clinical assessment, the patient appears to have tolerated the sedation without complications. Patient is recovering as anticipated. Patient will continue to be monitored by nursing and may be discharged when sedation discharge criteria are met per below protocol. Upon Completions of procedure and additional 15 minutes continue every 5 minute vital signs and the P.A.R. score; then discharge to a Phase I or Fast Track to Phase II per the following guidelines: * Discharge Patient to appropriate Phase II area if PAR is 8 or greater or return to pre- procedure baseline. The post - procedure orders will be as directed. * If PAR score is less than 8 or not return to pre-procedure baseline then patient will follow Phase I monitoring till PAR is reached for Phase II. The Phase I may be done in procedure room or may call to secure a Phase I area. * If naloxone or flumazenil are used for reversal, hold in Phase I for c ontinued monitoring from when last reversal dose was given for a minimum of 60 minutes or longer pending the nurse and/or physician discretion of patient condition before discharge to Phase II. Please call the Sedation Physician to re-evaluate and complete post-note for discharge to Phase II area. Do NOT discharge from procedure sedation or Phase 1 until post- sedation evaluation note is complete by procedure /sedation MD Sedation Discharge Instructions to be given to the patient at discharge to home.
--- NOTE | 2018-09-06 15:55 | Cardiac Catheterization ---
Cardiac Cath Procedure Full Procedure Date September 06, 2018 Pre-Procedure Diagnosis Pre-Procedure Diagnosis: Non STEMI, Valvular Disease and CHF AUC Score AUC Score: 8 Post-Procedure Diagnosis Post-Procedure Diagnosis: Severe CAD Procedure(s) Performed Procedure(s) Performed: Coronary Angiography Rn Palliative Roel Gresham MD Record Pressman(s) Elena Estimated Blood Loss Estimated Blood Loss: 5 Medication(s) Medication(s): Fentanyl, Heparin, Lidocaine 1%, Nicardipine, Nitroglycerin and Versed Summary of Findings Indication: High risk NSTEMI, acute systolic heart failure Access: 6 Fr right radial artery Catheters: [place] Findings: LM -Short vessel with 50% hazy stenosis LAD -95% hazy ostial stenosis, occluded in the midsegment after first diagonal. Distal vessel fills partially via right to left collaterals. First diagonal moderate caliber with 60% proximal disease Circumflex -large caliber vessel, 80% ostial stenosis. Moderate caliber OM1, large left PLB without significant disease RCA -large caliber vessel, dominant, 50 to 60% ostial stenosis. Distal luminal irregularities. Provides right to left collaterals Arterial Closure: TR band Summary: 1. Severe multivessel coronary artery disease -50% left main 95% ostial LAD, chronic mid segment occlusion. 60% proximal D1 80% ostial circumflex 50% ostial RCA. Provides right to left collaterals. Recommendations: Complex coronary artery disease in patient with new severe LV dysfunction and some degree of degenerative bioprosthetic aortic valve disease. Recommend transfer to tertiary center for consideration of CABG with redo sternotomy versus high risk PCI. 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
--- NOTE | 2018-09-06 16:25 | Discharge Summary ---
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 Pt notes she was last evaluated by PCP Dr. South 1 month ago. At the time patient had been doing well. 2 days after appointment she noticed intermittent lower ext swelling, worse at night and resolved in a.m. Over the past week sx have worsened and edema has been increasing and more persistent. She also notes THORNTON. Daughter at bedside elicits THORNTON likely past 2 weeks, but per patient it just started today. She is unsure of any weight gain as she doesn't weigh her self on a regular basis. She denies any recent illness, f/c/s, dizziness, lightheaded, chest pain, palpitations, sob at rest, n/v/d, abdominal pain, change in bowel or urinary habits. "I wouldn't be here if it wasn't for my swelling I feel fine." In ED patient was noted to have elevated BNP and 12,689, elevated troponin 0.074, BUN 22, creatinine 1.41, glucose 241. Chest x-ray consistent with congestive changes with interstitial edema and small bilateral pleural effusions. EKG revealed sinus tachycardia with ST depression and T wave inversions inferior and laterally. She was given Lasix 40 mg IV x1 along with 0.5 inch Nitropaste. Patient had a cardiac cath today, report is below and we have contacted [facility] for transfer to [facility] for CABG and redo Sternotomy.. Dr Dhillon Has Accepted [place] [address] Cardiac Catheterization Draft Patient: DODIE WAN Date: 09/05/18 MR#: [id number] Phy: Michel Solis DO Acct ID:[id number] Phy: Melina South MD Date: 1940Fam Phy: Age: 78Location: 2S Sex: F Room/Bed: [facility] cc: ~ *NOTICE TO RECEIVING CONSTITUTION PARTY/AGENCY This information is strictly Confidential and protected under [place] law. [place] law prohibits you from making any further disclosure of this information unless further disclosure is expressly permitted by the written consent of the person to whom it pertains or is authorized by law. A general authorization for the release of medical or other information is not sufficient for this purpose. Hospital accepts no responsibility if the information is made available to any other person, INCLUDING THE PATIENT. Cardiac Cath Procedure Full Procedure Date September 06, 2018 Pre-Procedure Diagnosis Pre-Procedure Diagnosis: Non STEMI, Valvular Disease and CHF AUC Score AUC Score: 8 Post-Procedure Diagnosis Post-Procedure Diagnosis: Severe CAD Procedure(s) Performed Procedure(s) Performed: Coronary Angiography Electric Meter Inspector Roel Gresham MD Radio Message Router(s) Elena Estimated Blood Loss Estimated Blood Loss: 5 Medication(s) Medication(s): Fentanyl, Heparin, Lidocaine 1%, Nicardipine, Nitroglycerin and Versed Summary of Findings Indication: High risk NSTEMI, acute systolic heart failure Access: 6 Fr right radial artery Catheters: [place] Findings: LM -Short vessel with 50% hazy stenosis LAD -95% hazy ostial stenosis, occluded in the midsegment after first diagonal. Distal vessel fills partially via right to left collaterals. First diagonal moderate caliber with 60% proximal disease Circumflex -large caliber vessel, 80% ostial stenosis. Moderate caliber OM1, large left PLB without significant disease RCA -large caliber vessel, dominant, 50 to 60% ostial stenosis. Distal luminal irregularities. Provides right to left collaterals Arterial Closure: TR band Summary: 1. Severe multivessel coronary artery disease -50% left main 95% ostial LAD, chronic mid segment occlusion. 60% proximal D1 80% ostial circumflex 50% ostial RCA. Provides right to left collaterals. Recommendations: Complex coronary artery disease in patient with new severe LV dysfunction and some degree of degenerative bioprosthetic aortic valve disease. Recommend transfer to tertiary center for consideration of CABG with redo sternotomy versus high risk PCI. Current MAR Current Inpatient Medications Acetaminophen (Tylenol) 650 mg PO Q4H PRN PRN Reason: Pain or Fever Stop: 10/05/18 19:01 Al Hydrox/Mg Hydrox/Simethicone (Maalox) 15 ml PO Q4H PRN PRN Reason: Dyspepsia Stop: 10/05/18 19:01 Aspirin (Ecotrin Ectab) 81 mg PO DAILY [facility] Stop: 10/06/18 08:59 Last Admin: 09/06/18 09:37 Dose: 81 mg Documented by: Atorvastatin Calcium (Lipitor) 40 mg PO HS [facility] Stop: 10/06/18 20:59 Dextrose (Dextrose 50%) 25 - 50 ml IV UD PRN; Protocol PRN Reason: Hypoglycemia Protocol Stop: 10/05/18 19:01 Glucagon (Glucagen) 1 mg SQ UD PRN; Protocol PRN Reason: Hypoglycemia Protocol Stop: 10/05/18 19:01 Glucose (Dex4 Glucose) 4 - 8 tabs PO UD PRN; Protocol PRN Reason: Hypoglycemia Protocol Stop: 10/05/18 19:01 Glucose (Glucose 40%) 15 - 30 gm PO UD PRN; Protocol PRN Reason: Hypoglycemia Protocol Stop: 10/05/18 19:01 Heparin Sodium/Dextrose (Heparin Sodium/Dextrose) 25,000 units in 500 mls @ 21 mls/hr IV .[id number] [facility]; Protocol Stop: 10/05/18 21:29 Last Titration: 09/06/18 16:34 Dose: 1,050 units/hr, 21 mls/hr Documented by: Furosemide 40 mg/ Syringe 4 mls @ 4 mls/min IV Q12H [facility] Stop: 10/06/18 19:59 Insulin Aspart (Novolog Flexpen) 0 units SC ACHS [facility] Stop: 10/05/18 20:59 Last Admin: 09/06/18 13:46 Dose: 1 units Documented by: Insulin Glargine (Lantus Solostar Pen) 0 units SC DAILY [facility]; Protocol Stop: 10/06/18 08:59 Last Admin: 09/06/18 07:52 Dose: 20 units Documented by: Lisinopril (Zestril) 20 mg PO DAILY [facility] Stop: 10/06/18 08:59 Last Admin: 09/06/18 07:49 Dose: 20 mg Documented by: Magnesium Hydroxide (Milk Of Magnesia) 30 ml PO Q12H PRN PRN Reason: Constipation Stop: 10/05/18 19:01 Metoprolol Tartrate (Lopressor) 25 mg PO BID [facility] Stop: 10/06/18 10:44 Last Admin: 09/06/18 13:48 Dose: Not Given Documented by: Miscellaneous (Carbohydrates For Hypoglycemia) 15 - 30 gm PO UD PRN PRN Reason: Hypoglycemia Treatment Stop: 10/05/18 19:01 Nitroglycerin (Nitrostat) 0.4 mg SL UD PRN PRN Reason: Chest Pain Stop: 10/05/18 19:01 Ondansetron HCl (Zofran) 4 mg IV Q6H PRN PRN Reason: Nausea Stop: 10/05/18 19:01 Polyethylene Glycol (Miralax Powder Packet) 17 gm PO DAILY PRN PRN Reason: Constipation Stop: 10/05/18 19:01 Potassium Chloride (Klor-Con M20) 20 meq PO DAILY [facility] Stop: 10/06/18 08:59 Last Admin: 09/06/18 07:49 Dose: 20 meq Documented by: Admission Exam Per Admitting Provider Gen: WD/WN, Elderly, F, Morbidly obese, NAD, sitting up in bed, pleasant and laughing, conversing easily Head: Normocephalic, Atraumatic Eyes: Sclera normal, no conjunctival injection, PERRLA, EOMI ENT: Gross hearing intact, normal pharynx, mucous membranes moist Neck: supple, no adenopathy, No JVD, no bruit, Resp: Clear to auscultation b/l, no wheeze, rales, rhonchi. increased insp/exp effort with use of abdominal musculature CV: tachycardic rate, regular rhythm, no murmur, rub, gallop, or ectopy, sternal scare noted Abd: protuberant abdomen, +BS x 4, soft, nontender, Musculoskeletal: moves extremities active rom x 4, strength intact, good gear setter strength Extremities: B/L +3 pretibial edema, +venous stasis changes, no erythema, wa rmth, negative homans sign Skin: warm, moist, no rash, negative turgor, cap refill < 2sec Neuro: Alert and oriented x 3, speech normal, good mood/affect, cran nerve 2-12 intact grossly : deferred Principal Diagnosis NSTEMI Systolic CHF Acute CAD DM II VHD HLD CKD 3 Discharge Exam ROS-No Headache, No Visual Changes, No Nausea, No Vomiting, No Fever, No Chills, No Neck Pain or Stiffness, No Chest Pain, No Palpitations, No SOB, No THORNTON, No Cough, No Sputum, No Wheezing, No Abdominal Pain, No Diarrhea, No Hematemesis, No Hemoptysis, No Unexpected Weight Loss, No Flank pain, No Melena, No Hematochezia, No Frequency, No Urgency, No Burning, No Hematuria, No Rashes, No Diaphoresis. Appetite is Normal, c/o LE edema Physical Exam Gen-AAO x 3, NAD, Afebrile, Pleasant, Obese Head-NCAT, EOMI, PERRLA, Anicteric Sclera, No Posterior Pharyngeal Erythema Neck-Supple, No JVD, No Thyromegaly, No Masses, No LAD, No Bruits Lungs-Clear to Auscultation Bilaterally, No Rales, No Rhonchi, No Wheezing, No Crepitus Chest-No S4, +S1, +S2, No S3, No Murmurs, No Rubs, No Gallops, No Ectopy Abdomen-Soft, Bowel Sounds Present, Non Tender, Non Distended, No Hepatomegaly, No Splenomegaly, No Palpable Masses, No Rebound, No Rigidity, No Guarding Musculoskeletal-Full Range of Motion Bilaterally, No CVAT Extremities-No Cyanosis, No Clubbing, 2-3+ Pitting Edema Nuero-Cranial Nerves II-XII grossly intact, Motor WNL, DTRs WNL, Strength WNL, Non Focal Psych-Normal Mood Discharge Data Allergies Allergy/AdvReac Type Severity Reaction Status Date / Time No Known Allergies Allergy Unknown Verified 09/05/18 14:30 Consultations 09/05/18 16:57 ED Decision to Admit Stat 09/05/18 17:51 Consult Cardiology Routine 09/05/18 19:02 Consult Case Management - Discharge Planning Routine Procedures Performed Operation Date: 09/06/18 13:00 Actual Procedures p Cath, Coronaries ONLY (no LV) - Rafiq Gresham MD s Cineradiography w/Routine Exam - Rafiq Gresham MD Current Diagnoses Thrombocytopenia, unspecified (09/05/18) Type 2 diabetes mellitus without complications (09/05/18) Non-ST elevation (NSTEMI) myocardial infarction (09/05/18) Atherosclerotic heart disease of unga coronary artery without angina pectoris (09/05/18) Paroxysmal atrial fibrillation (09/05/18) Heart failure, unspecified (09/05/18) Chronic kidney disease, stage 3 (moderate) (09/05/18) Abnormal levels of other serum enzymes (09/05/18) Presence of xenogenic heart valve (09/05/18) Allergies No Known Allergies Allergy (Unknown, Verified 09/05/18 14:30) Height/Weight/Isolation Height 5 ft 1 in Weight 91.5 kg Chemistry 09/05/18 09/06/18 14:23 03:52 Sodium 137 138 Potassium 3.7 3.7 Chloride 102 103 Carbon Dioxide 29 31 Anion Gap 6.0 4.0 BUN 22 H 22 H Creatinine 1.41 H 1.46 H Glucose 241 H 120 H Urinalysis 09/05/18 17:12 Urine Color Yellow Urine Appearance Clear Urine pH 6.0 Ur Specific [place] 1.011 Urine Protein Negative Urine Glucose (UA) Negative Urine Ketones Negative Urine Blood Negative Urine Nitrite Negative Urine Bilirubin Negative Ordered Studies 09/05/18 14:23 US venous doppler LE BI Stat 09/06/18 10:39 CL Cath Imgs for PACS use only Routine Hospital Course (1) NSTEMI (non-ST elevated myocardial infarction): S/P Cath, Transfer to [facility] s/o Dr Dhillon for eval CABG and Redo Sternotomy (2) CHF (congestive heart failure): Dr. Wesley on case Received Lasix 40mg x1 IN ED 40mg Lasix IV q12., monitor response and adjust dose accordingly echocardiogram (last echo 2015 revealed normal EF, Grade 1 DD) Daily standing weights Strict I and O Heart healthy/low sodium diet trend troponin (3) Elevated troponin: likely secondary to demand ischemia given CHF and sinus tachycardia trend troponin Q6h Dr Guan discussed with cardiology, heparin not recommended (4) CAD (coronary artery disease): currently on ASA, Statin, LIGIA not on BB No chest pain troponin elevated, likely demand ischemia will trend troponin, ecg and diurese (5) History of aortic valve replacement with bioprosthetic valve: No action needed (6) History of mitral valve replacement with bioprosthetic valve: No Action needed (7) PAF (paroxysmal atrial fibrillation): rate and rhythm controlled not on oral anticoagulation (pt didn't tolerate wafarin per cardiology notes) continue asa (8) T2DM (type 2 diabetes mellitus): Last A1C 8.5 on 07/26/18 On Lantus [address] on Lantus/Novolog per protocol on Lisinopril for renal protection (9) CKD (chronic kidney disease) stage 3, GFR 30-59 ml/min: monitor bmp with diuretic use (10) Thrombocytopenia: Plt ct stable at 122, on SC Heparin (11) DVT prophylaxis: heparin SQ, SCDS, TEDS per Dr. May reports pt has hx of DVT/PE monitor plt level Disposition: discharge to home when able Follow up: PCP Dr. South upon discharge along with appropriate follow up with [facility] Total Time Total Time Spent Total Time Spent (In Minutes): 45 mins Total Time Includes: Examination of the Patient, Discharge Planning, Medication Reconciliation and Communication With Other Providers Discharge Plan Discharge Items Patient Disposition: Transfer Acute Care Hospital Reason For Visit: CHF EXAC,ELEVATED TROP Discharge Diagnosis: NSTEMI Systolic CHF Acute CAD DM II VHD HLD CKD 3 Condition: Serious Discharge Goals: Therapeutic intervention Activity: As commented below Activity Comment: Bedrest Lifting: None Bathing Comment: Sponge Exercise/Sports: None Weightbearing: Left weightbearing and Right weightbearing Non-emergency contact: Primary Care Provider, Surgeon and Electric Meter Inspector Call non-emergency contact if: you have any medication questions and your symptoms worsen Follow-up/Referrals: Melina South MD [Primary Care Provider] - Diet: Carb Consistent or DM2 and Heart Healthy Fluids: 1200ml (5 cups) Addtl Provider Instructions: Transfer to Dr Dhillon at [facility] Prescriptions: New atorvastatin 40 mg Tablet 40 mg PO HS Qty: 30 RF: 0 lisinopril 20 mg Tablet 20 mg PO DAILY Qty: 30 RF: 0 nitroglycerin [Nitrostat] 0.4 mg Tablet, Sublingual 0.4 mg sublingual UD PRN (Reason: chest pain) Qty: 30 RF: 0 metoprolol tartrate 25 mg Tablet 25 mg PO BID Qty: 60 RF: 0 Continued furosemide 40 mg tablet 40 mg PO DAILY RF: 0 Lantus U-100 Insulin 100 unit/mL solution 50 units subcut BID RF: 0 potassium chloride [Klor-Con M20] 20 mEq tablet,ER particles/crystals 20 meq PO DAILY RF: 0 aspirin [Aspir-81] 81 mg Tablet,Delayed Release (Dr/Ec) 81 mg PO DAILY RF: 0 Discontinued atorvastatin 20 mg tablet 20 mg PO HS RF: 0 lisinopril 20 mg tablet 20 mg PO DAILY RF: 0 alendronate 70 mg tablet 70 mg PO WK RF: 0 amlodipine 2.5 mg tablet 2.5 mg PO DAILY RF: 0 Stand-Alone Forms: [facility] Discharge Orders: Discharge Order (Routine); Ordered 09/06/18 Ordered By: Michel Solis Admission Data Admit Date/Time: 09/05/18 17:51 Attending Provider: Mihcel Solis Admit Provider: Anahi Hodgson Primary Care Provider: Melina South Other Providers: Garland May ; Beverly Valencia ; Mando Wesley ; Anahi Hodgson Service: Telemetry Medical
[2018-09-06 20:29] VITALS: O2SAT 94
[2018-09-06] MEDS: Heparin Adult STANDARD Wt-Based Dextrose 5% 25,000 units/500 mL IV SCH (20:34)
[2018-09-06] MEDS ORDERED: ATORVASTATIN 40 MG TAB PO SCH (21:00)
[2018-09-06 23:18] VITALS: PULSE 67; TEMP 98.2
[2018-09-06 23:23] LABS: Partial Thromboplastin Ratio 4.8
[2018-09-06 23:34] LABS: Partial Thromboplastin Time 131.2 Seconds (21.0-31.0)
[2018-09-07 00:56] VITALS: BP 122/67
[2018-09-07 01:07] LABS: Partial Thromboplastin Ratio 2.7
[2018-09-07 01:13] LABS: Partial Thromboplastin Time 74.3 Seconds (21.0-31.0)
--- NOTE | 2018-09-07 08:26 | Emergency Department Note ---
Entered by Lizzette Hoover acting as a scribe for Sandrita Vickers DO History of Present Illness General Chief complaint: Edema To Extremity Stated complaint: SWELLING OF LEFT LEG/RASHES ON FEET Time Seen by Provider: 09/05/18 14:11 Source: patient Mode of arrival: ambulatory Limitations: no limitations History of Present Illness Provider complaint: Bilateral Leg Swelling Onset (ago): month(s) 1 Location: lower extremity, left and right Severity: moderate Pain Consistency: + intermittent Maximum Pain Intensity: 0 Associated symptoms: + denies other symptoms; no chest pain, no fever/chills and no nausea/vomiting Treatments prior to arrival: none Patient is a 78 year old female presenting to the ED with bilateral leg swelling beginning x1 month ago. Swelling is moderate in severity and intermittent since onset. She notes that she notified her PCP of the sx and recommended patient report to the ED for further evaluation. Patient notes that she has noticed increasing work of breath for the past few weeks, worsening with exertion. SOB does not change with lying flat. She denies any cough, nasal congestion, fevers, chills, nausea, vomiting, diarrhea, CP or any other complaints or concerns at this time. She notes she did have open heart surgery in 2009. She denies any kidney problems, DVT, or previous leg swelling episodes. She notes she does take furosemide 40mg QD, but denies any blood thinner use. Home Medications Home Medications Medication Instructions Recorded Confirmed Type Lantus U-100 Insulin 50 units SUBCUT BID 09/05/18 09/05/18 History aspirin [Aspir-81] 81 mg PO DAILY 09/05/18 09/05/18 History furosemide 40 mg PO DAILY 09/05/18 09/05/18 History potassium chloride [Klor-Con M20] 20 meq PO DAILY 09/05/18 09/05/18 History atorvastatin 40 mg PO HS #30 tab 09/06/18 Rx lisinopril 20 mg PO DAILY #30 tab 09/06/18 Rx metoprolol tartrate 25 mg PO BID #60 tab 09/06/18 Rx nitroglycerin [Nitrostat] 0.4 mg SUBLINGUAL UD PRN #30 tab 09/06/18 Rx Allergies Allergy/AdvReac Type Severity Reaction Status Date / Time No Known Allergies Allergy Unknown Verified 09/05/18 14:30 Past Med/Surg History Medical History History of DVT (deep vein thrombosis) (Chronic) History of pulmonary embolism (Chronic) T2DM (type 2 diabetes mellitus) (Chronic) PAF (paroxysmal atrial fibrillation) (Chronic) Thrombocytopenia (Chronic) CKD (chronic kidney disease) stage 3, GFR 30-59 ml/min (Chronic) CAD (coronary artery disease) (Chronic) HLD (hyperlipidemia) (Chronic) Osteoporosis (Chronic) History of uterine cancer (Chronic) No pertinent past medical history (Resolved) Family history non-contributory Surgical History History of aortic valve replacement with bioprosthetic valve (Chronic) History of mitral valve replacement with bioprosthetic valve (Chronic) No pertinent past surgical history (Resolved) Social History Preferred Language: Afghan Communication Ability: Effective Gun 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 and A total of 10 systems reviewed and were otherwise negative Physical Exam Vital Signs Vital Signs - 24 hr 09/06/18 11:30 09/06/18 15:45 09/06/18 15:56 Temperature 36.7 C 37.0 C 36.9 C Temperature Source Oral Oral Oral Pulse Rate Pulse Rate [Finger] 85 83 84 Pulse Rhythm [Finger] Regular Regular Pulse Strength [Finger] Normal Normal Respiratory Rate 18 18 20 Respiratory Effort / Characteristics Non-Labored Spontaneous Non-Labored Spontaneous Respiratory Depth Normal Normal Respiratory Pattern Regular Regular Blood Pressure [Left Arm] Blood Pressure [Right Arm] 124/68 119/73 119/66 Blood Pressure Mean [Left Arm] Blood Pressure Mean [Right Arm] 86 88 83 Blood Pressure Position [Left Arm] Blood Pressure Position [Right Arm] Lying Sitting Sitting Pulse Oximetry 93 95 96 Oxygen Delivery Method Room Air Room Air Room Air 09/06/18 16:11 09/06/18 16:26 09/06/18 16:41 Temperature 36.8 C 36.8 C Temperature Source Oral Oral Pulse Rate Pulse Rate [Finger] 82 84 82 Pulse Rhythm [Finger] Regular Regular Pulse Strength [Finger] Normal Normal Respiratory Rate 20 20 20 Respiratory Effort / Characteristics Non-Labored Spontaneous Non-Labored Spontaneous Respiratory Depth Normal Normal Respiratory Pattern Regular Regular Blood Pressure [Left Arm] Blood Pressure [Right Arm] 113/70 113/70 112/67 Blood Pressure Mean [Left Arm] Blood Pressure Mean [Right Arm] 84 84 82 Blood Pressure Position [Left Arm] Blood Pressure Position [Right Arm] Sitting Sitting Pulse Oximetry 95 92 93 Oxygen Delivery Method Room Air Room Air 09/06/18 17:15 09/06/18 17:17 09/06/18 17:41 Temperature 37.0 C Temperature Source Oral Pulse Rate 84 Pulse Rate [Finger] 83 Pulse Rhythm [Finger] Pulse Strength [Finger] Respiratory Rate 18 Respiratory Effort / Characteristics Non-Labored Spontaneous Respiratory Depth Normal Respiratory Pattern Regular Blood Pressure [Left Arm] Blood Pressure [Right Arm] 126/75 Blood Pressure Mean [Left Arm] Blood Pressure Mean [Right Arm] 92 Blood Pressure Position [Left Arm] Blood Pressure Position [Right Arm] Pulse Oximetry 95 Oxygen Delivery Method Room Air 09/06/18 18:35 09/06/18 19:27 09/06/18 20:28 Temperature 37.3 C 37.1 C 37.2 C Temperature Source Oral Oral Oral Pulse Rate Pulse Rate [Finger] 82 85 88 Pulse Rhythm [Finger] Regular Regular Pulse Strength [Finger] Normal Normal Respiratory Rate 18 20 18 Respiratory Effort / Characteristics Non-Labored Spontaneous Non-Labored Spontaneous Respiratory Depth Normal Normal Respiratory Pattern Regular Regular Blood Pressure [Left Arm] Blood Pressure [Right Arm] 102/70 120/81 122/67 Blood Pressure Mean [Left Arm] Blood Pressure Mean [Right Arm] 80 94 85 Blood Pressure Position [Left Arm] Blood Pressure Position [Right Arm] Lying Sitting Pulse Oximetry 94 91 94 Oxygen Delivery Method Room Air Room Air Room Air 09/06/18 23:15 09/07/18 00:00 09/07/18 00:52 Temperature 36.8 C 36.8 C Temperature Source Oral Pulse Rate Pulse Rate [Finger] 67 67 Pulse Rhythm [Finger] Pulse Strength [Finger] Respiratory Rate 18 18 Respiratory Effort / Characteristics SOB on Exertion Respiratory Depth Normal Respiratory Pattern Regular Blood Pressure [Left Arm] 116/77 116/77 Blood Pressure [Right Arm] 122/67 Blood Pressure Mean [Left Arm] 90 Blood Pressure Mean [Right Arm] Blood Pressure Position [Left Arm] Lying Blood Pressure Position [Right Arm] Pulse Oximetry 94 94 Oxygen Delivery Method Room Air Room Air 09/07/18 02:32 Temperature 36.8 C Temperature Source Pulse Rate Pulse Rate [Finger] 67 Pulse Rhythm [Finger] Pulse Strength [Finger] Respiratory Rate 18 Respiratory Effort / Characteristics Respiratory Depth Respiratory Pattern Blood Pressure [Left Arm] 116/77 Blood Pressure [Right Arm] 122/67 Blood Pressure Mean [Left Arm] Blood Pressure Mean [Right Arm] Blood Pressure Position [Left Arm] Blood Pressure Position [Right Arm] Pulse Oximetry 94 Oxygen Delivery Method GENERAL: alert, well appearing, well nourished, no distress, non-toxic EYE EXAM: normal conjunctiva, PERRL and EOM's grossly intact OROPHARYNX: no exudate, no erythema, lips, buccal mucosa, and tongue normal and mucous membranes are moist NECK: supple, no nuchal rigidity, no adenopathy, non-tender LUNGS: Clear to auscultation. Normal chest wall mechanics. No wheezes, rhonchi, and rales HEART: no murmurs, S1 normal and S2 normal ABDOMEN: abdomen soft, non-tender, normo-active bowel sounds, no masses, no rebound or guarding. BACK: Back is symmetrical on inspection and there is no deformity, no midline tenderness, no CVA tenderness. SKIN: no rashes and no bruising UPPER EXTREMITIES: upper extremities are grossly normal. FROM, nml pulses b/l. LOWER EXTREMITIES: Bilateral lower extremity edema, left greater than right. Good distal pulses bilaterally. NEURO EXAM: Normal sensorium, cranial nerves II-XII grossly intact, normal speech, no gross weakness of arms, no gross weakness of legs. Course 1412: Patient was evaluated in room B04B. A full history and physical examination were obtained. 1644: Updated patient on results and plan for admission. She is agreeable to plan. 1655: Discussed case with Tracy Mccauley PA-C for [facility], who accepts patient for admission. Administered Medications Discontinued Medications Amlodipine Besylate (Norvasc) 2.5 mg PO DAILY CECILIA Stop: 10/06/18 08:59 Last Admin: 09/06/18 07:49 Dose: 2.5 mg Documented by: [id number] Aspirin (Ecotrin Ectab) 81 mg PO DAILY [facility]IA Stop: 10/06/18 08:59 Last Admin: 09/06/18 09:37 Dose: 81 mg Documented by: [id number] Aspirin (Aspirin Chew) 324 mg PO NOW STA Stop: 09/05/18 21:04 Last Admin: 09/05/18 21:16 Dose: 324 mg Documented by: [id number] Atorvastatin Calcium (Lipitor) 20 mg PO HS [facility]IA Stop: 10/05/18 20:59 Last Admin: 09/05/18 21:07 Dose: Not Given Documented by: [id number] Atorvastatin Calcium (Lipitor) 40 mg PO HS [facility] Stop: 10/06/18 20:59 Last Admin: 09/06/18 20:29 Dose: 40 mg Documented by: [id number] Fentanyl Citrate (Fentanyl Citrate) Confirm Administered Dose 100 mcg .ROUTE .STK-MED ONE Stop: 09/06/18 14:22 Last Admin: 09/06/18 16:36 Dose: Not Given Documented by: [id number] Furosemide (Lasix) Confirm Administered Dose 40 mg IV .STK-MED ONE Stop: 09/05/18 17:19 Last Admin: 09/05/18 17:23 Dose: Not Given Documented by: [id number] Heparin Sodium (Porcine) (Heparin Sodium (Porcine)) 5,000 units SQ Q8 [facility] Stop: 10/05/18 21:59 Last Admin: 09/05/18 21:08 Dose: 5,000 units Documented by: [id number] Cosigned by: [id number] Heparin Sodium (Porcine) (Heparin Iv Bolus (Staffing Associate Use Only)) Confirm Administered Dose 10,000 units .ROUTE .STK-MED ONE Stop: 09/06/18 14:22 Last Admin: 09/06/18 16:36 Dose: Not Given Documented by: [id number] Heparin Sodium/Dextrose () 1 ea IV Q15M CECILIA; Protocol Stop: 10/05/18 21:03 Last Admin: 09/05/18 22:33 Dose: Not Given Documented by: [id number] Admin: 09/05/18 21:38 Dose: 1 ea Documented by: [id number] Heparin Sodium/Sodium Chloride (Heparin/Nss 1000 Unit/500ml Flush Bag) Confirm Administered Dose 3,000 units IV .STK-MED ONE Stop: 09/06/18 14:22 Last Admin: 09/06/18 16:36 Dose: Not Given Documented by: [id number] Furosemide 40 mg/ Syringe 4 mls @ 4 mls/min IV ONE ONE Stop: 09/05/18 16:57 Last Admin: 09/05/18 17:24 Dose: 4 mls/min Documented by: [id number] Furosemide 40 mg/ Syringe 4 mls @ 4 mls/min IV DAILY [facility] Stop: 10/06/18 08:59 Last Admin: 09/06/18 07:49 Dose: 4 mls/min Documented by: [id number] Heparin Sodium/Dextrose (Heparin Sodium/Dextrose) 25,000 units in 500 mls @ 17 mls/hr IV .Q24H CECILIA; Protocol Stop: 10/05/18 21:29 Last Titration: 09/07/18 01:20 Dose: 850 units/hr, 17 mls/hr Documented by: [id number] Cosigned by: [id number] Titration: 09/06/18 23:35 Dose: 0 units/hr, 0 mls/hr Documented by: [id number] Cosigned by: [id number] Titration: 09/06/18 22:51 Dose: 1,050 units/hr, 21 mls/hr Documented by: [id number] Cosigned by: [id number] Admin: 09/06/18 20:34 Dose: 1,050 units/hr, 21 mls/hr Documented by: [id number] Cosigned by: [id number] Titration: 09/06/18 20:26 Dose: 1,050 units/hr, 21 mls/hr Documented by: [id number] Cosigned by: [id number] Titration: 09/06/18 16:34 Dose: 1,050 units/hr, 21 mls/hr Documented by: [id number] Cosigned by: [id number] Titration: 09/06/18 07:17 Dose: 1,050 units/hr, 21 mls/hr Documented by: [id number] Cosigned by: [id number] Titration: 09/06/18 05:15 Dose: 1,050 units/hr, 21 mls/hr Documented by: [id number] Cosigned by: [id number] Titration: 09/05/18 22:31 Dose: 1,200 units/hr, 24 mls/hr Documented by: [id number] Cosigned by: [id number] Admin: 09/05/18 21:42 Dose: 1,200 units/hr, 24 mls/hr Documented by: [id number] Cosigned by: [id number] Furosemide 40 mg/ Syringe 4 mls @ 4 mls/min IV Q12H [facility] Stop: 10/06/18 19:59 Last Admin: 09/06/18 20:29 Dose: 4 mls/min Documented by: [id number] Insulin Aspart (Novolog Flexpen) 0 units SC ACHS [facility] Stop: 10/05/18 20:59 Last Admin: 09/06/18 20:30 Dose: Not Given Documented by: [id number] Cosigned by: [id number] Admin: 09/06/18 18:37 Dose: 1 units Documented by: [id number] Cosigned by: [id number] Admin: 09/06/18 13:46 Dose: 1 units Documented by: [id number] Cosigned by: [id number] Admin: 09/06/18 07:51 Dose: 2 units Documented by: [id number] Cosigned by: [id number] Admin: 09/05/18 21:07 Dose: Not Given Documented by: [id number] Cosigned by: [id number] Insulin Glargine (Lantus Solostar Pen) 0 units SC DAILY [facility]; Protocol Stop: 10/06/18 08:59 Last Admin: 09/06/18 07:52 Dose: 20 units Documented by: [id number] Cosigned by: [id number] Lisinopril (Zestril) 20 mg PO DAILY [facility] Stop: 10/06/18 08:59 Last Admin: 09/06/18 07:49 Dose: 20 mg Documented by: [id number] Metoprolol Tartrate (Lopressor) 25 mg PO BID [facility] Stop: 10/06/18 10:44 Last Admin: 09/06/18 20:29 Dose: 25 mg Documented by: [id number] Admin: 09/06/18 13:48 Dose: Not Given Documented by: [id number] Midazolam HCl (Versed) Confirm Administered Dose 2 mg .ROUTE .STK-MED ONE Stop: 09/06/18 14:22 Last Admin: 09/06/18 16:36 Dose: Not Given Documented by: [id number] Nicardipine HCl (Cardene) Confirm Administered Dose 25 mg .ROUTE .STK-MED ONE Stop: 09/06/18 14:22 Last Admin: 09/06/18 16:36 Dose: Not Given Documented by: [id number] Nitroglycerin (Nitro-Bid 2%) 0.5 inch EXT NOW STA Stop: 09/05/18 16:59 Last Admin: 09/05/18 17:24 Dose: 0.5 inch Documented by: [id number] Nitroglycerin/Dextrose (Nitroglycerin/D5w 100 Mcg/Ml 20ml Syringe) Confirm Administered Dose 2,000 mcg .ROUTE .STK-MED ONE Stop: 09/06/18 14:23 Last Admin: 09/06/18 16:36 Dose: Not Given Documented by: [id number] Perflutren Lipid Microsphere (Definity) 2 ml IV ONCE ONE Stop: 09/06/18 07:08 Last Admin: 09/06/18 07:08 Dose: 2 ml Documented by: [id number] Potassium Chloride (Klor-Con M20) 20 meq PO DAILY C[facility]ILIA Stop: 10/06/18 08:59 Last Admin: 09/06/18 07:49 Dose: 20 meq Documented by: [id number] Medical Decision Making Differential Diagnosis Differential diagnosis: Etiologies such as DVT, musculoskeletal, infection, joint effusion, trauma, lymphedema, idiopathic, CHF, reactive airway disease, pneumonia, pneumothorax, COPD, CHF, cardiac ischemia, pulmonary embolism, musculoskeletal, gastrointestinal, as well as others were entertained Medical Records Attestation: I reviewed the patient's medical records. Home Medications Current Medication List: was personally reviewed by me Laboratory Data Attestation: I reviewed the patient's lab results. Result diagrams: 09/06/18 03:52 09/06/18 03:52 Lab Results 09/05/18 09/05/18 09/05/18 Range/Units 14:23 14:23 17:12 WBC 6.88 (4.8-10.8) K/uL RBC 4.92 (4.2-5.4) M/uL Hgb 13.1 (12.0-16.0) g/dL Hct 42.2 (37-47) % MCV 85.8 (80-100) fL MCH 26.6 (25-34) pg MCHC 31.0 L (32-36) g/dL RDW Std Deviation 48.7 H (36.4-46.3) fL RDW Coeff of Na 15.4 H (11.5-14.5) % Plt Count 122 L (130-400) K/uL MPV 11.7 H (7.4-10.4) fL Immature Gran % (Auto) 0.1 % Neut % (Auto) 77.7 % Lymph % (Auto) 11.8 % Guthrie % (Auto) 8.6 % Eos % (Auto) 1.5 % Baso % (Auto) 0.3 % Immature Gran # (Auto) 0.01 (0.00-0.02) K/uL Neut # (Auto) 5.35 (1.4-6.5) K/uL Lymph # (Auto) 0.81 L (1.2-3.4) K/uL Guthrie # (Auto) 0.59 (0.11-0.59) K/uL Eos # (Auto) 0.10 (0-0.5) K/uL Baso # (Auto) 0.02 (0-0.2) K/uL PT (9.0-12.0) Seconds INR (0.9-1.1) APTT (21.0-31.0) Seconds PTT Ratio Sodium 137 (136-145) mmol/L Potassium 3.7 (3.5-5.1) mmol/L Chloride 102 (98-107) mmol/L Carbon Dioxide 29 (21-32) mmol/L Anion Gap 6.0 (3-11) BUN 22 H (7-18) mg/dl Creatinine 1.41 H (0.6-1.2) mg/dl Est Cr Clr Drug Dosing 34.1 ml/min Est GFR ( Amer) 41.0 Est GFR (Non-Af Amer) 35.3 BUN/Creatinine Ratio 15.9 (10-20) Glucose 241 H (70-99) mg/dl POC Glucose (70-99) Estimat Average Glucose mg/dl Hemoglobin A1c (4.5-5.6) % Calcium 9.1 (8.5-10.1) mg/dl Magnesium 2.0 (1.8-2.4) mg/dl Total Bilirubin 1.7 H (0.2-1) mg/dl Direct Bilirubin (0-0.2) mg/dl AST 24 (15-37) U/L ALT 26 (12-78) U/L Alkaline Phosphatase 123 H (45-117) U/L Troponin I 0.074 H* (0-0.045) ng/ml NT-Pro-B Natriuret Pep 80951 H (0-1800) pg/ml Total Protein 7.5 (6.4-8.2) gm/dl Albumin 4.1 (3.4-5.0) gm/dl Globulin 3.4 (2.5-4.0) gm/dl Albumin/Globulin Ratio 1.2 (0.9-2) Triglycerides (0-150) mg/dl Cholesterol (0-200) mg/dl LDL Cholesterol, Calc mg/dl VLDL Cholesterol, Calc mg/dl HDL Cholesterol mg/dl Cholesterol/HDL Ratio Lipase 276 (73-393) U/L Urine Color Yellow Urine Appearance Clear (Clear) Urine pH 6.0 (4.5-7.5) Ur Specific Crawford 1.011 (1.000-1.030) Urine Protein Negative (Negative) Urine Glucose (UA) Negative (Negative) Urine Ketones Negative (Negative) Urine Blood Negative (Negative) Urine Nitrite Negative (Negative) Urine Bilirubin Negative (Negative) Urine Urobilinogen Negative (Negative) Ur Leukocyte Esterase Negative (Negative) 09/05/18 09/05/18 09/05/18 Range/Units 19:50 19:50 21:01 WBC (4.8-10.8) K/uL RBC (4.2-5.4) M/uL Hgb (12.0-16.0) g/dL Hct (37-47) % MCV (80-100) fL MCH (25-34) pg MCHC (32-36) g/dL RDW Std Deviation (36.4-46.3) fL RDW Coeff of Na (11.5-14.5) % Plt Count (130-400) K/uL MPV (7.4-10.4) fL Immature Gran % (Auto) % Neut % (Auto) % Lymph % (Auto) % Guthrie % (Auto) % Eos % (Auto) % Baso % (Auto) % Immature Gran # (Auto) (0.00-0.02) K/uL Neut # (Auto) (1.4-6.5) K/uL Lymph # (Auto) (1.2-3.4) K/uL Guthrie # (Auto) (0.11-0.59) K/uL Eos # (Auto) (0-0.5) K/uL Baso # (Auto) (0-0.2) K/uL PT 12.4 H (9.0-12.0) Seconds INR 1.2 H (0.9-1.1) APTT 27.8 (21.0-31.0) Seconds PTT Ratio 1.0 Sodium (136-145) mmol/L Potassium (3.5-5.1) mmol/L Chloride (98-107) mmol/L Carbon Dioxide (21-32) mmol/L Anion Gap (3-11) BUN (7-18) mg/dl Creatinine (0.6-1.2) mg/dl Est Cr Clr Drug Dosing ml/min Est GFR ( Amer) Est GFR (Non-Af Amer) BUN/Creatinine Ratio (10-20) Glucose (70-99) mg/dl POC Glucose 159 H (70-99) Estimat Average Glucose mg/dl Hemoglobin A1c (4.5-5.6) % Calcium (8.5-10.1) mg/dl Magnesium (1.8-2.4) mg/dl Total Bilirubin (0.2-1) mg/dl Direct Bilirubin (0-0.2) mg/dl AST (15-37) U/L ALT (12-78) U/L Alkaline Phosphatase (45-117) U/L Troponin I 2.260 H* (0-0.045) ng/ml NT-Pro-B Natriuret Pep (0-1800) pg/ml Total Protein (6.4-8.2) gm/dl Albumin (3.4-5.0) gm/dl Globulin (2.5-4.0) gm/dl Albumin/Globulin Ratio (0.9-2) Triglycerides (0-150) mg/dl Cholesterol (0-200) mg/dl LDL Cholesterol, Calc mg/dl VLDL Cholesterol, Calc mg/dl HDL Cholesterol mg/dl Cholesterol/HDL Ratio Lipase (73-393) U/L Urine Color Urine Appearance (Clear) Urine pH (4.5-7.5) Ur Specific Crawford (1.000-1.030) Urine Protein (Negative) Urine Glucose (UA) (Negative) Urine Ketones (Negative) Urine Blood (Negative) Urine Nitrite (Negative) Urine Bilirubin (Negative) Urine Urobilinogen (Negative) Ur Leukocyte Esterase (Negative) 09/06/18 09/06/18 09/06/18 Range/Units 03:52 03:52 03:52 WBC 7.28 (4.8-10.8) K/uL RBC 4.69 (4.2-5.4) M/uL Hgb 12.9 (12.0-16.0) g/dL Hct 39.6 (37-47) % MCV 84.4 (80-100) fL MCH 27.5 (25-34) pg MCHC 32.6 (32-36) g/dL RDW Std Deviation 47.1 H (36.4-46.3) fL RDW Coeff of Na 15.4 H (11.5-14.5) % Plt Count 116 L (130-400) K/uL MPV 11.5 H (7.4-10.4) fL Immature Gran % (Auto) % Neut % (Auto) % Lymph % (Auto) % Guthrie % (Auto) % Eos % (Auto) % Baso % (Auto) % Immature Gran # (Auto) (0.00-0.02) K/uL Neut # (Auto) (1.4-6.5) K/uL Lymph # (Auto) (1.2-3.4) K/uL Guthrie # (Auto) (0.11-0.59) K/uL Eos # (Auto) (0-0.5) K/uL Baso # (Auto) (0-0.2) K/uL PT (9.0-12.0) Seconds INR (0.9-1.1) APTT 78.4 H* (21.0-31.0) Seconds PTT Ratio 2.9 Sodium 138 (136-145) mmol/L Potassium 3.7 (3.5-5.1) mmol/L Chloride 103 (98-107) mmol/L Carbon Dioxide 31 (21-32) mmol/L Anion Gap 4.0 (3-11) BUN 22 H (7-18) mg/dl Creatinine 1.46 H (0.6-1.2) mg/dl Est Cr Clr Drug Dosing 32.4 ml/min Est GFR ( Amer) 39.3 Est GFR (Non-Af Amer) 33.9 BUN/Creatinine Ratio 15.1 (10-20) Glucose 120 H (70-99) mg/dl POC Glucose (70-99) Estimat Average Glucose mg/dl Hemoglobin A1c (4.5-5.6) % Calcium 8.9 (8.5-10.1) mg/dl Magnesium 2.0 (1.8-2.4) mg/dl Total Bilirubin 2.0 H (0.2-1) mg/dl Direct Bilirubin 0.5 H (0-0.2) mg/dl AST 77 H (15-37) U/L ALT 28 (12-78) U/L Alkaline Phosphatase 99 (45-117) U/L Troponin I 15.600 H* (0-0.045) ng/ml NT-Pro-B Natriuret Pep (0-1800) pg/ml Total Protein 7.1 (6.4-8.2) gm/dl Albumin 3.7 (3.4-5.0) gm/dl Globulin (2.5-4.0) gm/dl Albumin/Globulin Ratio (0.9-2) Triglycerides 58 (0-150) mg/dl Cholesterol 121 (0-200) mg/dl LDL Cholesterol, Calc 59 mg/dl VLDL Cholesterol, Calc 12 mg/dl HDL Cholesterol 50 mg/dl Cholesterol/HDL Ratio 2 Lipase (73-393) U/L Urine Color Urine Appearance (Clear) Urine pH (4.5-7.5) Ur Specific Crawford (1.000-1.030) Urine Protein (Negative) Urine Glucose (UA) (Negative) Urine Ketones (Negative) Urine Blood (Negative) Urine Nitrite (Negative) Urine Bilirubin (Negative) Urine Urobilinogen (Negative) Ur Leukocyte Esterase (Negative) 09/06/18 09/06/18 09/06/18 Range/Units 03:52 06:18 07:32 WBC (4.8-10.8) K/uL RBC (4.2-5.4) M/uL Hgb (12.0-16.0) g/dL Hct (37-47) % MCV (80-100) fL MCH (25-34) pg MCHC (32-36) g/dL RDW Std Deviation (36.4-46.3) fL RDW Coeff of Na (11.5-14.5) % Plt Count (130-400) K/uL MPV (7.4-10.4) fL Immature Gran % (Auto) % Neut % (Auto) % Lymph % (Auto) % Guthrie % (Auto) % Eos % (Auto) % Baso % (Auto) % Immature Gran # (Auto) (0.00-0.02) K/uL Neut # (Auto) (1.4-6.5) K/uL Lymph # (Auto) (1.2-3.4) K/uL Guthrie # (Auto) (0.11-0.59) K/uL Eos # (Auto) (0-0.5) K/uL Baso # (Auto) (0-0.2) K/uL PT (9.0-12.0) Seconds INR (0.9-1.1) APTT (21.0-31.0) Seconds PTT Ratio Sodium (136-145) mmol/L Potassium (3.5-5.1) mmol/L Chloride (98-107) mmol/L Carbon Dioxide (21-32) mmol/L Anion Gap (3-11) BUN (7-18) mg/dl Creatinine (0.6-1.2) mg/dl Est Cr Clr Drug Dosing ml/min Est GFR ( Amer) Est GFR (Non-Af Amer) BUN/Creatinine Ratio (10-20) Glucose (70-99) mg/dl POC Glucose 119 H 137 H (70-99) Estimat Average Glucose 192 mg/dl Hemoglobin A1c 8.3 H (4.5-5.6) % Calcium (8.5-10.1) mg/dl Magnesium (1.8-2.4) mg/dl Total Bilirubin (0.2-1) mg/dl Direct Bilirubin (0-0.2) mg/dl AST (15-37) U/L ALT (12-78) U/L Alkaline Phosphatase (45-117) U/L Troponin I (0-0.045) ng/ml NT-Pro-B Natriuret Pep (0-1800) pg/ml Total Protein (6.4-8.2) gm/dl Albumin (3.4-5.0) gm/dl Globulin (2.5-4.0) gm/dl Albumin/Globulin Ratio (0.9-2) Triglycerides (0-150) mg/dl Cholesterol (0-200) mg/dl LDL Cholesterol, Calc mg/dl VLDL Cholesterol, Calc mg/dl HDL Cholesterol mg/dl Cholesterol/HDL Ratio Lipase (73-393) U/L Urine Color Urine Appearance (Clear) Urine pH (4.5-7.5) Ur Specific Crawford (1.000-1.030) Urine Protein (Negative) Urine Glucose (UA) (Negative) Urine Ketones (Negative) Urine Blood (Negative) Urine Nitrite (Negative) Urine Bilirubin (Negative) Urine Urobilinogen (Negative) Ur Leukocyte Esterase (Negative) 09/06/18 09/06/18 09/06/18 Range/Units 11:05 11:10 16:01 WBC (4.8-10.8) K/uL RBC (4.2-5.4) M/uL Hgb (12.0-16.0) g/dL Hct (37-47) % MCV (80-100) fL MCH (25-34) pg MCHC (32-36) g/dL RDW Std Deviation (36.4-46.3) fL RDW Coeff of Na (11.5-14.5) % Plt Count (130-400) K/uL MPV (7.4-10.4) fL Immature Gran % (Auto) % Neut % (Auto) % Lymph % (Auto) % Guthrie % (Auto) % Eos % (Auto) % Baso % (Auto) % Immature Gran # (Auto) (0.00-0.02) K/uL Neut # (Auto) (1.4-6.5) K/uL Lymph # (Auto) (1.2-3.4) K/uL Guthrie # (Auto) (0.11-0.59) K/uL Eos # (Auto) (0-0.5) K/uL Baso # (Auto) (0-0.2) K/uL PT (9.0-12.0) Seconds INR (0.9-1.1) APTT 62.0 H* (21.0-31.0) Seconds PTT Ratio 2.3 Sodium (136-145) mmol/L Potassium (3.5-5.1) mmol/L Chloride (98-107) mmol/L Carbon Dioxide (21-32) mmol/L Anion Gap (3-11) BUN (7-18) mg/dl Creatinine (0.6-1.2) mg/dl Est Cr Clr Drug Dosing ml/min Est GFR ( Amer) Est GFR (Non-Af Amer) BUN/Creatinine Ratio (10-20) Glucose (70-99) mg/dl POC Glucose 204 H 89 (70-99) Estimat Average Glucose mg/dl Hemoglobin A1c (4.5-5.6) % Calcium (8.5-10.1) mg/dl Magnesium (1.8-2.4) mg/dl Total Bilirubin (0.2-1) mg/dl Direct Bilirubin (0-0.2) mg/dl AST (15-37) U/L ALT (12-78) U/L Alkaline Phosphatase (45-117) U/L Troponin I (0-0.045) ng/ml NT-Pro-B Natriuret Pep (0-1800) pg/ml Total Protein (6.4-8.2) gm/dl Albumin (3.4-5.0) gm/dl Globulin (2.5-4.0) gm/dl Albumin/Globulin Ratio (0.9-2) Triglycerides (0-150) mg/dl Cholesterol (0-200) mg/dl LDL Cholesterol, Calc mg/dl VLDL Cholesterol, Calc mg/dl HDL Cholesterol mg/dl Cholesterol/HDL Ratio Lipase (73-393) U/L Urine Color Urine Appearance (Clear) Urine pH (4.5-7.5) Ur Specific Crawford (1.000-1.030) Urine Protein (Negative) Urine Glucose (UA) (Negative) Urine Ketones (Negative) Urine Blood (Negative) Urine Nitrite (Negative) Urine Bilirubin (Negative) Urine Urobilinogen (Negative) Ur Leukocyte Esterase (Negative) 09/06/18 09/06/18 09/06/18 Range/Units 20:17 21:55 22:23 WBC (4.8-10.8) K/uL RBC (4.2-5.4) M/uL Hgb (12.0-16.0) g/dL Hct (37-47) % MCV (80-100) fL MCH (25-34) pg MCHC (32-36) g/dL RDW Std Deviation (36.4-46.3) fL RDW Coeff of Na (11.5-14.5) % Plt Count (130-400) K/uL MPV (7.4-10.4) fL Immature Gran % (Auto) % Neut % (Auto) % Lymph % (Auto) % Guthrie % (Auto) % Eos % (Auto) % Baso % (Auto) % Immature Gran # (Auto) (0.00-0.02) K/uL Neut # (Auto) (1.4-6.5) K/uL Lymph # (Auto) (1.2-3.4) K/uL Guthrie # (Auto) (0.11-0.59) K/uL Eos # (Auto) (0-0.5) K/uL Baso # (Auto) (0-0.2) K/uL PT (9.0-12.0) Seconds INR (0.9-1.1) APTT 131.2 H* (21.0-31.0) Seconds PTT Ratio 4.8 Sodium (136-145) mmol/L Potassium (3.5-5.1) mmol/L Chloride (98-107) mmol/L Carbon Dioxide (21-32) mmol/L Anion Gap (3-11) BUN (7-18) mg/dl Creatinine (0.6-1.2) mg/dl Est Cr Clr Drug Dosing ml/min Est GFR ( Amer) Est GFR (Non-Af Amer) BUN/Creatinine Ratio (10-20) Glucose (70-99) mg/dl POC Glucose 118 H 117 H (70-99) Estimat Average Glucose mg/dl Hemoglobin A1c (4.5-5.6) % Calcium (8.5-10.1) mg/dl Magnesium (1.8-2.4) mg/dl Total Bilirubin (0.2-1) mg/dl Direct Bilirubin (0-0.2) mg/dl AST (15-37) U/L ALT (12-78) U/L Alkaline Phosphatase (45-117) U/L Troponin I (0-0.045) ng/ml NT-Pro-B Natriuret Pep (0-1800) pg/ml Total Protein (6.4-8.2) gm/dl Albumin (3.4-5.0) gm/dl Globulin (2.5-4.0) gm/dl Albumin/Globulin Ratio (0.9-2) Triglycerides (0-150) mg/dl Cholesterol (0-200) mg/dl LDL Cholesterol, Calc mg/dl VLDL Cholesterol, Calc mg/dl HDL Cholesterol mg/dl Cholesterol/HDL Ratio Lipase (73-393) U/L Urine Color Urine Appearance (Clear) Urine pH (4.5-7.5) Ur Specific Crawford (1.000-1.030) Urine Protein (Negative) Urine Glucose (UA) (Negative) Urine Ketones (Negative) Urine Blood (Negative) Urine Nitrite (Negative) Urine Bilirubin (Negative) Urine Urobilinogen (Negative) Ur Leukocyte Esterase (Negative) 09/07/18 Range/Units 00:40 WBC (4.8-10.8) K/uL RBC (4.2-5.4) M/uL Hgb (12.0-16.0) g/dL Hct (37-47) % MCV (80-100) fL MCH (25-34) pg MCHC (32-36) g/dL RDW Std Deviation (36.4-46.3) fL RDW Coeff of Na (11.5-14.5) % Plt Count (130-400) K/uL MPV (7.4-10.4) fL Immature Gran % (Auto) % Neut % (Auto) % Lymph % (Auto) % Guthrie % (Auto) % Eos % (Auto) % Baso % (Auto) % Immature Gran # (Auto) (0.00-0.02) K/uL Neut # (Auto) (1.4-6.5) K/uL Lymph # (Auto) (1.2-3.4) K/uL Guthrie # (Auto) (0.11-0.59) K/uL Eos # (Auto) (0-0.5) K/uL Baso # (Auto) (0-0.2) K/uL PT (9.0-12.0) Seconds INR (0.9-1.1) APTT 74.3 H* (21.0-31.0) Seconds PTT Ratio 2.7 Sodium (136-145) mmol/L Potassium (3.5-5.1) mmol/L Chloride (98-107) mmol/L Carbon Dioxide (21-32) mmol/L Anion Gap (3-11) BUN (7-18) mg/dl Creatinine (0.6-1.2) mg/dl Est Cr Clr Drug Dosing ml/min Est GFR ( Amer) Est GFR (Non-Af Amer) BUN/Creatinine Ratio (10-20) Glucose (70-99) mg/dl POC Glucose (70-99) Estimat Average Glucose mg/dl Hemoglobin A1c (4.5-5.6) % Calcium (8.5-10.1) mg/dl Magnesium (1.8-2.4) mg/dl Total Bilirubin (0.2-1) mg/dl Direct Bilirubin (0-0.2) mg/dl AST (15-37) U/L ALT (12-78) U/L Alkaline Phosphatase (45-117) U/L Troponin I (0-0.045) ng/ml NT-Pro-B Natriuret Pep (0-1800) pg/ml Total Protein (6.4-8.2) gm/dl Albumin (3.4-5.0) gm/dl Globulin (2.5-4.0) gm/dl Albumin/Globulin Ratio (0.9-2) Triglycerides (0-150) mg/dl Cholesterol (0-200) mg/dl LDL Cholesterol, Calc mg/dl VLDL Cholesterol, Calc mg/dl HDL Cholesterol mg/dl Cholesterol/HDL Ratio Lipase (73-393) U/L Urine Color Urine Appearance (Clear) Urine pH (4.5-7.5) Ur Specific Crawford (1.000-1.030) Urine Protein (Negative) Urine Glucose (UA) (Negative) Urine Ketones (Negative) Urine Blood (Negative) Urine Nitrite (Negative) Urine Bilirubin (Negative) Urine Urobilinogen (Negative) Ur Leukocyte Esterase (Negative) Imaging Data Radiologist's Impression: US venous doppler LE BI HISTORY: Pain. Edema. le edema COMPARISON STUDY: None. FINDINGS: There is normal compressibility, flow, and augmentation within the bilateral lower extremity deep venous systems. IMPRESSION: No DVT within the right or left lower extremity. The above report was generated using voice recognition software. It may contain grammatical, syntax or spelling errors. Electronically signed by: Joe Romero M.D. 09/05/2018 4:24 PM SINGLE VIEW CHEST CLINICAL HISTORY: Dyspnea. FINDINGS: An AP, portable, upright chest radiograph is compared to study dated 04/21/2010. The examination is degraded by portable technique and patient rotation. The patient is status post midline sternotomy. The heart is enlarged and there is atherosclerotic calcification of the thoracic ureter. There is pulmonary vascular congestion with interstitial edema. Small pleural effusions are noted. There is bibasilar atelectasis. No pneumothorax is seen. The skeletal structures are osteopenic. There are healed right-sided rib fractures. Arthritic change is noted in the shoulders and spine. IMPRESSION: 1. Cardiomegaly with evidence of congestive failure and interstitial edema. 2. Small pleural effusions. Electronically signed by: Sunday Mueller M.D. 09/05/2018 2:51 PM ECG Data Attestation: I personally reviewed and interpreted this ECG as follows: Indication: other (edema) Rate (beats per minute): 103 Rhythm: sinus tachycardia Findings: + other (normal axis, normal interval), + ST depression (in V3, V4, V5, V6) and + T-wave inversion (AVL) Comparison ECG Date: from (12/26/09) Change: the following changes noted Blood Pressure Blood Pressure Findings: Elevated blood pressure Blood Pressure Disposition: further management by hospitalist [facility] Narrative Patient here presenting with complaints of bilateral lower extremity edema as well as worsening dyspnea with exertion recently. Patient states she is anticoagulated to a prior history of A. fib. No DVT noted on Doppler. Patient found to have elevated troponin elevated BNP. Given description of dyspnea on exertion and findings of pulmonary edema on chest x-ray, likely component of congestive heart failure contributing to elevated troponin. Patient did have T wave inversions and slight ST depression noted on EKG, did discuss with her possible ACS. No ST elevation noted to warrant emergent trip to catheterization lab. Patient hemodynamically stable while here. Patient not hypoxic. Patient with no symptoms while at rest. Patient with mild chronic renal insufficiency, which could contribute to elevated troponin also. Patient and family made aware of all results at bedside. Case discussed with hospitalist for additional evaluation and management. Patient in agreement with this plan. I do not s uspect occult infectious etiology, dissection, tamponade, pericarditis/myocarditis. Impression & Plan CHF (congestive heart failure), Lower extremity edema, CKD (chronic kidney disease), NSTEMI (non-ST elevated myocardial infarction) Discharge Plan Visit Data *Final* Discharge Date/Time: 09/05/18 18:07 Chief Complaint: Edema To Extremity Stated Complaint: SWELLING OF LEFT LEG/RASHES ON FEET ED Provider: Sandrita Vickers Discharge Problem: CHF (congestive heart failure), Lower extremity edema, CKD (chronic kidney disease), NSTEMI (non-ST elevated myocardial infarction) Patient Disposition: Admitted As Inpatient Condition: Serious Discharge Instructions Interventions: ED Discharge Assessment Last Done: 09/05/18 18:07 Discharge Problem: CHF (congestive heart failure) Qualifiers: Heart failure type: unspecified Heart failure chronicity: unspecified Qualified Code(s): I50.9 - Heart failure, unspecified CKD (chronic kidney disease) Qualifiers: Chronic kidney disease stage: unspecified stage Qualified Code(s): N18.9 - Chronic kidney disease, unspecified The scribe's documentation has been prepared under my direction and personally reviewed by me in its entirety. I confirm that the note above accurately reflects all work, treatment, procedures, and medical decision making performed by me.
== END 2018-09-07 02:15 | disposition short-term general hospital (02) | DRG 280 ==
LOC: ED 13:04 → SUATTDRO 17:51 → 2S 17:51
PROC: CLB.CCO (2018-09-06 13:00)